=== PATIENT | male | born 1970 | race Caucasian/White ===

== ENCOUNTER → 2018-09-27 | Outpatient (CLI) | payer BC ==
[~2018-09-27] MED LIST: BARIUM SUSPENSION 2.1% (REDI-CAT 2) 450 ML PO ONE; CATHETER FLUSH 10 ML SYR IV PRN; HOLD METFORMIN - RECEIVED CONTRAST 20 ML VIAL IV SCH; IOHEXOL 350 MG/ML 150 ML (OMNIPAQUE 350) VIAL IV ONE; NS 100 ML (IVPB) BAG IV ONE
[2018-09-27 10:11] LABS: BASOPHILS % (AUTO) 0 % (0-10); EOSINOPHILS # (AUTO) 0.4 10^3/uL (0.0-0.3); EOSINOPHILS % (AUTO) 2 % (0-10); HEMATOCRIT 38 % (40-54); HEMOGLOBIN 12.7 G/DL (13.3-17.7); LYMPHOCYTES # (AUTO) 1.9 X 10^3 (1.0-4.0); LYMPHOCYTES % (AUTO) 31 % (12-44); MEAN CORPUSCULAR HEMOGLOBIN 31 PG (25-34); MEAN CORPUSCULAR HGB CONC 34 G/DL (32-36); MEAN CORPUSCULAR VOLUME 91 FL (80-99); MEAN PLATELET VOLUME 8.8 FL (7.4-10.4); MONOCYTES # (AUTO) 0.4 X 10^3 (0.0-1.0); MONOCYTES % (AUTO) 6 % (0-12); NEUTROPHILS # (AUTO) 3.6 X 10^3 (1.8-7.8); NEUTROPHILS % (AUTO) 60 % (42-75); PLATELET COUNT 131 10^3/uL (130-400); RED CELL DISTRIBUTION WIDTH 13.3 % (10.0-14.5)
[2018-09-27 10:40] LABS: SODIUM 144 MMOL/L (135-145)
[2018-09-27 10:41] LABS: ALANINE AMINOTRANSFERASE 34 U/L (0-55); ALBUMIN 4.1 GM/DL (3.2-4.5); ALKALINE PHOSPHATASE 90 U/L (40-136); BILIRUBIN,TOTAL 0.5 MG/DL (0.1-1.0); BUN/CREATININE RATIO 15; CALCIUM 8.6 MG/DL (8.5-10.1); CARBON DIOXIDE 23 MMOL/L (21-32); CHLORIDE 108 MMOL/L (98-107); GFR ESTIMATED > 60; GLUCOSE 108 MG/DL (70-105); TOTAL PROTEIN 6.5 GM/DL (6.4-8.2)
--- NOTE | 2018-09-27 13:45 | Diagnostic Imaging Report ---
INDICATION: Leukemia. COMPARISON: No prior examinations are available for comparison. TECHNIQUE: Multiple contiguous axial images were obtained through the neck, chest, abdomen, and pelvis after the uneventful bolus administration of intravenous contrast. Sagittal and coronal reformations were then performed. FINDINGS: The visualized intracranial structures are unremarkable. The frontal, ethmoid, and sphenoid sinuses are clear. There is moderate mucosal thickening in the right maxillary sinus. The left maxillary sinus is clear. The mastoid air cells are clear. The nasopharyngeal, oropharyngeal, and hypopharyngeal tissues are symmetrical and without mass effect. The parotid, submandibular, and thyroid glands are normal in appearance. The lung apices are clear. The major vascular structures of the neck enhance in a normal fashion. There is no pathologically enlarged adenopathy or mass in the neck. The globes and intraorbital structures are unremarkable. There are minimal degenerative changes in the cervical spine. There are no discrete pulmonary nodules, masses, or infiltrates. There is no pleural or pericardial fluid. There is no pneumothorax. The heart size is normal. The thoracic aorta is normal in caliber. There is no pathologically enlarged adenopathy in the chest. There is no pneumothorax. There are mild degenerative changes in the thoracic spine. The liver is normal in size and without focal lesions. The gallbladder is unremarkable. There is no biliary ductal dilatation. Spleen is normal. The pancreas and adrenal glands are unremarkable. There are small bilateral renal cysts. The kidneys are otherwise unremarkable. The aorta is nonaneurysmal. Bowel gas pattern is nonspecific. There is no pathologically enlarged adenopathy in the central mesentery or retroperitoneum. No free air. There is no ascites. There are no focal inflammatory changes. The appendix is normal. Bladder is normal. There is no pelvic mass, adenopathy, or free fluid. There are mild degenerative changes in the spine. IMPRESSION: 1. Mild mucosal thickening in the right maxillary sinus. 2. Degenerative changes in the spine. 3. Bilateral renal cysts. 4. No other acute abnormality in the neck, chest, abdomen, or pelvis. Dictated by: Dictated on workstation # [id number]
== END ==
LOC: RAD FS 09:48
PROVIDERS: ATTEND Internal Medicine Hematology & Oncology
DX: C91.11 Chronic lymphocytic leukemia of B-cell type in remission (principal); J34.89 Other specified disorders of nose and nasal sinuses; N28.1 Cyst of kidney, acquired; M47.812 Spondylosis without myelopathy or radiculopathy, cervical region; M47.814 Spondylosis without myelopathy or radiculopathy, thoracic region
CPT/HCPCS: 36415; 70491; 71260; 74176; 80053; 82232; 82784; 83615; 85025

== ENCOUNTER → 2019-10-04 | Outpatient (CLI) | payer BC ==
[~2019-10-04] MED LIST changes: -BARIUM SUSPENSION 2.1% (REDI-CAT 2) 450 ML PO ONE; +BARIUM SUSPENSION 2.1% (VANILLA SILQ) 450 ML PO ONE; +HYDR-3820 PO; +IOHEXOL 350 MG/ML 100 ML (OMNIPAQUE 350) VIAL IV ONE; -IOHEXOL 350 MG/ML 150 ML (OMNIPAQUE 350) VIAL IV ONE; +ONDA4TAB11 PO; +TMSL.4C PO
[2019-10-04 09:25] LABS: HEMATOCRIT 35 % (40-54); HEMOGLOBIN 11.7 G/DL (13.3-17.7); MEAN CORPUSCULAR HEMOGLOBIN 31 PG (25-34); MEAN CORPUSCULAR HGB CONC 34 G/DL (32-36); MEAN CORPUSCULAR VOLUME 92 FL (80-99); RED CELL DISTRIBUTION WIDTH 14.3 % (10.0-14.5); WHITE BLOOD COUNT 13.9 10^3/uL (4.3-11.0)
[2019-10-04 09:26] LABS: BASOPHILS % (AUTO) 0 % (0-10); EOSINOPHILS % (AUTO) 1 % (0-10); MONOCYTES % (AUTO) 12 % (0-12); NEUTROPHILS % (AUTO) 24 % (42-75); PLATELET COUNT 70 10^3/uL (130-400)
[2019-10-04 09:28] LABS: BASOPHILS # (AUTO) 0.1 10^3/uL (0.0-0.1); EOSINOPHILS # (AUTO) 0.1 10^3/uL (0.0-0.3); LYMPHOCYTES # (AUTO) 8.5 X 10^3 (1.0-4.0); LYMPHOCYTES % (AUTO) 64 % (12-44); MONOCYTES # (AUTO) 1.7 X 10^3 (0.0-1.0); NEUTROPHILS # (AUTO) 3.4 X 10^3 (1.8-7.8)
[2019-10-04 09:55] LABS: BILIRUBIN,TOTAL 0.6 MG/DL (0.1-1.0); CALCIUM 9.4 MG/DL (8.5-10.1); CREATININE SERUM 1.38 MG/DL (0.60-1.30); TOTAL PROTEIN 6.7 GM/DL (6.4-8.2)
[2019-10-04 09:56] LABS: ALBUMIN 4.5 GM/DL (3.2-4.5)
--- NOTE | 2019-10-04 12:59 | Diagnostic Imaging Report ---
EXAMINATION: CT Neck, Chest, Abdomen and Pelvis with intravenous contrast. TECHNIQUE: Multiple contiguous axial images were obtained through the neck, chest, abdomen and pelvis after the uneventful administration of intravenous contrast. All CT scans use one or more of the following dose optimizing techniques: automated exposure control, MA and/or KvP adjustment based on a patient size and exam type, or iterative reconstruction. HISTORY: History of CLL. 1 year follow-up. COMPARISON: 09/27/2018. FINDINGS: Neck CT: Interval enlargement of innumerable cervical lymph nodes is seen. A marker lymph node in the right level 2 station measures 2.6 x 2.0 cm, previously measuring 1.1 x 0.5 cm. A marker lymph node in the left level 2 station measures 2.7 x 1.7 cm, previously measuring 1.2 x 0.9 cm. Enlarged lymphadenopathy extends into the base of the neck. The parotid, submandibular, and thyroid glands demonstrate no acute abnormalities. The nasopharynx, oropharynx, hypopharynx, and larynx demonstrate no acute abnormalities. The aerodigestive tract is patent. The paranasal sinuses and mastoid air cells are well pneumatized. The globes and orbits demonstrate no acute abnormalities. The intracranial contents are unremarkable. Chest CT: There has been interval development of pathologically enlarged lymphadenopathy in the bilateral axillary regions and mediastinum. A marker lymph node in the left axilla measures 2.2 x 2.6 cm. A marker lymph node in the right axilla measures 3.3 x 2.1 cm. A mediastinal lymph node posterior and left to the esophagus measures 2.7 x 1.6 cm. Interval increase in size in a nodule in the right middle lobe measuring 0.9 cm, previously measuring 0.5 cm. A new nodule seen in the right upper lobe measuring 0.9 cm. No focal consolidations. Subsegmental atelectasis is seen in the lingula. Calcified granuloma is noted in the right lung base. No central endobronchial obstructing lesions. The heart size is normal. No pericardial effusions. A right port is visualized. No acute osseous abnormalities are seen in the thoracic spine. Abdomen and Pelvis CT: Pathologically enlarged mediastinal and retroperitoneal lymphadenopathy is seen. There is also lymphadenopathy along the bilateral iliac chains and within the bilateral inguinal regions. There has been development of hepatosplenomegaly. The spleen measures 16.7 cm craniocaudal, previously measuring 12.1 cm. No focal hepatic or splenic lesions are seen. The portal vein is patent. The gallbladder is unremarkable. Pancreas is normal. Spleen is normal. Adrenal glands are normal. A nonobstructing calculus is seen in the right kidney measuring 0.5 cm. No obstructing calculi or hydronephrosis. Simple cortical cysts are seen bilaterally which do not require additional follow-up. No solid suspicious renal masses are seen. The urinary bladder is nondistended. There are no dilated loops of large or small bowel. No obstruction or inflammation. No free fluid or air. Aorta is normal in caliber without aneurysm. There are no suspicious osseus lesions. IMPRESSION: 1. Interval development of pathologically enlarged lymphadenopathy in the neck, chest, abdomen and pelvis. These findings are concerning for disease progression since the last exam. 2. Development of hepatosplenomegaly. No focal hepatic or splenic lesions are seen. These findings likely relate to the patient's history of CLL. 3. Interval increase in size in a nodule in the right middle lobe measuring 0.9 cm with development of a new nodule in the right upper lobe measuring 0.9 cm. Recommend attention on follow-up. Dictated by: Dictated on workstation # [id number]
== END ==
LOC: LAB FS 08:41
PROVIDERS: ATTEND Internal Medicine Hematology & Oncology
DX: C91.11 Chronic lymphocytic leukemia of B-cell type in remission (principal); R91.1 Solitary pulmonary nodule
CPT/HCPCS: 36415; 70491; 71260; 74176; 80053; 82728; 83540; 83615; 85025

== ENCOUNTER 2019-10-05 22:43 | Emergency (ER) | payer BC ==
[~2019-10-05] VITALS: Ht 180.3 cm; Wt 121.0 kg
[2019-10-05] MEDS ORDERED: PROCHLORPERAZINE 10 MG/2ML INJ (COMPAZINE) IV ONE (23:00)
[2019-10-05] MEDS ORDERED: NS IV 1000 ML 1,000 ML IV SCH (23:00)
[2019-10-05] MEDS ORDERED: KETOROLAC 30 MG/ML VIAL IVP ONE (23:00)
[2019-10-05] MEDS ORDERED: fentaNYL INJECTION 100 MCG/2 ML AMP IVP ONE (23:00)
--- OUTSIDE RECORDS SUMMARY | 2019-10-05 23:26 | XMS REPORT | Continuity of Care Document ---
Demographics x Preferred Language Unknown Marital Status Unknown Jainism Affiliation Unknown Race Unknown Ethnic Group Unknown Author Organization Unknown Address Unknown Phone Unavailable Allergies Active Description Code Type Severity Reaction Onset Reported/Identified Relationship to Patient Clinical Status Yes No Allergy Information Available [id number] Drug Allergy Unknown N/A 019 Yes oxycodone [id number] Drug Allergy Unknown N/A 10/04/2019 Medications There is no data. 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 09/28/2018 RADHA VALIENTE NORBERTO V Ot M47.81 4 SPONDYLOSIS W/O MYELOPATHY OR RADICULOPA 09/28/2018 RADHA VALIENTE, NORBERTO V Ot N28.1 CYST OF KIDNEY, ACQUIRED 10/18/2018 RADHA VALIENTE NORBERTO V Ot C91.11 CHRONIC LYMPHOCYTIC LEUKEMIA OF B-CELL T 10/18/2018 RADHA VALIENTE NORBERTO V Ot J34.89 OTHER SPECIFIED DISORDERS OF NOSE AND NA 10/18/2018 RADHA VALIENTE NORBERTO V Ot 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 Results Test Result Range Complete blood count (CBC) with automate d white blood cell (WBC) differential - 09/27/18 10:04 Blood leukocytes automated count (number/volume) 6.0 10*3/uL 4.3-11.0 Blood erythrocytes automated count (number/volume) 4.15 10*6/uL 4.35-5.85 Venous blood hemoglobin measurement (mass/volume) 12.7 g/dL 13.3-17.7 Blood hematocrit (volume fraction) 38 % 40-54 Automated erythrocyte mean corpuscular volume 91 [ foz_us] 80-99 Automated erythrocyte mean corpuscular h emoglobin (mass per erythrocyte) 31 pg 25-34 Automated erythrocyte mean corpuscular h emoglobin concentration measurement (mass/volume) 34 g/dL 32-36 Automated erythrocyte distribution width ratio 13. 3 % 10.0- 14.5 Automated blood platelet count (count/volume) 131 10*3/uL 130-400 Automated blood platelet mean volume measurement 8.8 [foz_us] 7.4-10.4 Automated blood neutrophils/100 leukocytes 60 % 42-75 Automated blood lymphocytes/100 leukocytes 31 % 12-44 Blood monocytes/100 leukocytes 6 % 0-12 Automated blood eosinophils/100 leukocytes 2 % 0-10 Automated blood basophils/100 leukocytes 0 % 0-10 Blood neutrophils automated count (number/volume) 3.6 10*3 1.8-7.8 Blood lymphocytes automated count (number/volume) 1.9 10*3 1.0-4.0 Blood monocytes automated count (number/volume) 0. 4 10*3 0.0-1.0 Automated eosinophil count 0.4 10*3/uL 0 .0-0.3 Automated blood basophil count (count/volume) 0.0 10*3/uL 0.0-0.1 Comprehensive metabolic panel - 09/27/18 10:04 Serum or plasma sodium measurement (moles/volume) 144 mmol/L 135-145 Serum or plasma potassium measurement (moles/volume) 4.0 mmol/L 3.6-5.0 Serum or plasma chloride measurement (moles/volume) 108 mmol/L 98-107 Carbon dioxide 23 mmol/L 21-32 Serum or plasma anion gap determination (moles/volume) 13 mmol/L 5-14 Serum or plasma urea nitrogen measurement (mass/volume ) 16 mg/dL 7-18 Serum or plasma creatinine measurement (mass/volume) 1.10 mg/dL 0.60-1.30 Serum or plasma urea nitrogen/creatinine mass ratio 15 NRG Serum or plasma creatinine measurement w ith calculation of estimated glomerular filtration rate > NRG Serum or plasma glucose measurement (mass/volume) 108 mg/dL 70-105 Serum or plasma calcium measurement (mass/volume) 8.6 mg/dL 8.5-10.1 Serum or plasma total bilirubin measurement (mass/volu me) 0.5 mg/dL 0.1-1.0 Serum or plasma alkaline phosphatase giuseppe surement (enzymatic activity/volume) 90 U/L 40-136 Serum or plasma aspartate aminotransfera se measurement (enzymatic activity/volume) 24 U/L 5-34 Serum or plasma alanine aminotransferase measurement (enzymatic activity/volume) 34 U/L 0-55 Serum or plasma protein measurement (mass/volume) 6.5 g/dL 6.4-8.2 Serum or plasma albumin measurement (mass/volume) 4.1 g/dL 3.2-4.5 CALCIUM CORRECTED 8.5 mg/dL 8.5-10.1 Serum ragweed IgE antibody assay - 09/27 10:04 Serum ragweed IgE antibody assay 252 U/L 125-220 Serum plmk-9-ytrbkmvchvnpt measurement ( mass/volume) - 09/27/18 10:04 Irvg-1-Gsaadyvgkjvli [Mass/volume] in Serum or Plasma 2.45 % 0.00-1.85 Serum or plasma IgG measurement (mass/vo lume) - 09/27/18 10:04 [id number] 564 % [id number] T4 FREE - 10/18/18 08:07 T4, FREE 1.2 ng/dL 0.8-1.8 TSH - 10/18/18 08:07 TSH 0.34 mIU/L 0.40-4.50 T3 FREE - 10/18/18 08:07 T3, FREE 3.4 pg/mL 2.3-4.2 Complete blood count (CBC) with automate d white blood cell (WBC) differential - 10/04/19 09:04 Blood leukocytes automated count (number/volume) 13.9 10*3/uL 4.3-11.0 Blood erythrocytes automated count (number/volume) 3.81 10*6/uL 4.35-5.85 Venous blood hemoglobin measurement (mass/volume) 11.7 g/dL 13.3-17.7 Blood hematocrit (volume fraction) 35 % 40-54 Automated erythrocyte mean corpuscular volume 92 [ foz_us] 80-99 Automated erythrocyte mean corpuscular h emoglobin (mass per erythrocyte) 31 pg 25-34 Automated erythrocyte mean corpuscular h emoglobin concentration measurement (mass/volume) 34 g/dL 32-36 Automated erythrocyte distribution width ratio 14. 3 % 10.0- 14.5 Automated blood platelet count (count/volume) 70 1 0*3/uL 130-400 Automated blood platelet mean volume measurement 9.0 [foz_us] 7.4-10.4 Automated blood neutrophils/100 leukocytes 24 % 42-75 Automated blood lymphocytes/100 leukocytes 64 % 12-44 Blood monocytes/100 leukocytes 12 % 0-12 Automated blood eosinophils/100 leukocytes 1 % 0-10 Automated blood basophils/100 leukocytes 0 % 0-10 Blood neutrophils automated count (number/volume) 3.4 10*3 1.8-7.8 Blood lymphocytes automated count (number/volume) 8.5 10*3 1.0-4.0 Blood monocytes automated count (number/volume) 1. 7 10*3 0.0-1.0 Automated eosinophil count 0.1 10*3/uL 0 .0-0.3 Automated blood basophil count (count/volume) 0.1 10*3/uL 0.0-0.1 Comprehensive metabolic panel - 10/04/19 09:04 Serum or plasma sodium measurement (moles/volume) 145 mmol/L 135-145 Serum or plasma potassium measurement (moles/volume) 4.0 mmol/L 3.6-5.0 Serum or plasma chloride measurement (moles/volume) 110 mmol/L 98-107 Carbon dioxide 23 mmol/L 21-32 Serum or plasma anion gap determination (moles/volume) 12 mmol/L 5-14 Serum or plasma urea nitrogen measurement (mass/volume ) 18 mg/dL 7-18 Serum or plasma creatinine measurement (mass/volume) 1.38 mg/dL 0.60-1.30 Serum or plasma urea nitrogen/creatinine mass ratio 13 NRG Serum or plasma creatinine measurement w ith calculation of estimated glomerular filtration rate 55 NRG Serum or plasma glucose measurement (mass/volume) 111 mg/dL 70-105 Serum or plasma calcium measurement (mass/volume) 9.4 mg/dL 8.5-10.1 Serum or plasma total bilirubin measurement (mass/volu me) 0.6 mg/dL 0.1-1.0 Serum or plasma alkaline phosphatase giuseppe surement (enzymatic activity/volume) 108 U/L 40-136 Serum or plasma aspartate aminotransfera se measurement (enzymatic activity/volume) 19 U/L 5-34 Serum or plasma alanine aminotransferase measurement (enzymatic activity/volume) 23 U/L 0-55 Serum or plasma protein measurement (mass/volume) 6.7 g/dL 6.4-8.2 Serum or plasma albumin measurement (mass/volume) 4.5 g/dL 3.2-4.5 CALCIUM CORRECTED 9.0 mg/dL 8.5-10.1 Serum ragweed IgE antibody assay - 10/03 09:04 Serum ragweed IgE antibody assay 272 U/L 125-220 Serum iron and total iron binding capaci ty panel - 10/04/19 09:04 TIBC 326 % 280-380 UIBC 205 % 55-450 Serum or plasma iron measurement (mass/volume) 121 % 40-180 Total iron binding capacity and transferrin saturation measurement 37 % 15-50 Serum or plasma ferritin measurement (mass/volume) 203.8 % 32.0-356.0 Encounters ACCT No. Visit Date/Time Discharge Status Pt. Type Provider Facility Loc./Unit Complaint [id number] 01/05/2019 16:00:00 01/05/2019 23:59: 59 CLS Outpatient ERMELINDA PRINCE [facility] [id number] 10/18/2018 08:00:00 Document Registration [id number] 02/04/2019 08:45:00 23:59:59 CLS Preadmit ERMELINDA PRINCE [employer] [facility] RAD FS LOW TSH LEVEL [id number] 09/27/2018 09:48:00 23:59:59 CLS Outpatient RADHA VALIENTE, NORBERTO V [facility] RAD FS CHRONIC LYMPHOCYTIC ADEEL KEMIA C91.11 [id number] 10/05/2019 22:44:[address] Emergency JAE BARAHONA DO [facility] ER FS VOMITING,RIGHT SIDE ABD PAIN [id number] 10/04/2019 08:41:[address] Outpatient RADHA VALIENTE, NORBERTO V [facility] LAB FS CHRONIC LYMPHOCYTIC LEUKEMIA OF B-CELL [id number] 10/22/2018 20:09:36 ACT Unknown [id number] 10/23/2018 00:46:54 ACT Document Registration
[2019-10-06 00:05] LABS: BILIRUBIN,URINE 1+ (NEGATIVE); CLARITY,URINE CLOUDY; COLOR,URINE DARK BROWN; GLUCOSE, URINE (UA) NEGATIVE (NEGATIVE); KETONES,URINE TRACE (NEGATIVE); LEUKOCYTE ESTERASE ,URINE NEGATIVE (NEGATIVE); NITRITE,URINE NEGATIVE (NEGATIVE); PH,URINE 6.5 (5-9); PROTEIN,URINE 2+ (NEGATIVE); RBC,URINE >100 /HPF
[2019-10-06 00:06] LABS: BACTERIA,URINE FEW /HPF; GRANULAR CASTS,URINE 0-2 /LPF
[2019-10-06] MEDS ORDERED: HYDR-3820 PO (00:58)
[2019-10-06] MEDS ORDERED: ONDA4TAB11 PO (00:58)
[2019-10-06] MEDS ORDERED: TMSL.4C PO (00:58)
[2019-10-06] MEDS ORDERED: ONDANSETRON 4 MG (ZOFRAN) ORAL DISSOLVE TAB PO STA (00:59)
[2019-10-06] MEDS ORDERED: morphine INJ 10 MG/ML 1ML (SYR OR VIAL) IVP STA (00:59)
[2019-10-06] MEDS ORDERED: HYDROcodone/APAP 5 MG/325 MG (LORTAB) TAB PO ONE (01:00)
[2019-10-06] MEDS ORDERED: ONDANSETRON 4 MG/2 ML (SDV) Z0FRAN IVP ONE (01:00)
[2019-10-06] MEDS ORDERED: RX-ONDANSETRON 4 MG ODT (ZOFRAN) PPK #4 PO STA (01:05)
[2019-10-06] MEDS ORDERED: RX-HYDROCODONE/APAP 5/325 MG #4 TAB PK PO PRN (01:15)
[2019-10-06 01:17] VITALS: BP 122/72
--- NOTE | 2019-10-06 04:18 | ED General ---
General Chief Complaint: Abdominal/GI Problems Stated Complaint: VOMITING,RIGHT SIDE ABD PAIN Nursing Triage Note: PT AMBULATE TO ROOM FS01 WITH C/O ABD PAIN/N/V. PT REPORTS HAVING SCANS DONE YESTERDAY AND HAS KIDNEY STONES. Nursing Sepsis Screen: No Definite Risk Exam Limitations: No Limitations History of Present Illness Date Seen by Provider: Oct 05, 2019 Time Seen by Provider: 23:00 Initial Comments Patient is a 49-year-old male with history of chronic lymphocytic leukemia and known kidney stones presents with acute onset right flank pain starting 6 hours prior to ED arrival. Pain is described as dull, nonradiating and rated moderate to severe. Pain waxes and wanes it is associated with nausea and vomiting. His similar in location and pattern as prior kidney stones. No fever chills or sweats. No change in urinary pattern but does report blood-tinged urine. Patient states he passed multiple kidney stones in the past and has not required surgical intervention. Patient coincidentally had outpatient CTs chest abdomen pelvis for surveillance of chronic leukemia. Timing/Duration: 4-6 Hours Severity: Severe Modifying Factors: improves with Other Allergies and Home Medications Allergies Coded Allergies: oxycodone (Unverified Allergy, Unknown, 10/04/19) Home Medications Hydrocodone/Acetaminophen 1 Each Tablet, 1 EACH PO Q4H Prescribed by: JAE BARAHONA on 10/06/1958 Ondansetron 4 Mg Tab.rapdis, 4 MG PO Q6H Prescribed by: JAE BARAHONA on 10/06/1957 Tamsulosin HCl 0.4 Mg Cap, 0.4 MG PO DAILY Prescribed by: JAE BARAHONA on 10/06/1958 Patient Home Medication List Home Medication List Reviewed: Yes Review of Systems Review of Systems Constitutional: see HPI EENTM: see HPI Respiratory: see HPI Cardiovascular: see HPI Gastrointestinal: see HPI Genitourinary: see HPI Musculoskeletal: see HPI Skin: see HPI Psychiatric/Neurological: See HPI Hematologic/Lymphatic: See HPI Immunological/Allergic: see HPI Past Ghifuvt-Fzjbkt-Kzlsmd Hx Past Med/Social Hx: Reviewed Nursing Past Med/Soc Hx Patient Social History Alcohol Use: Denies Use Recreational Drug Use: No Smoking Status: Never a Smoker 2nd Hand Smoke Exposure: No Recent Foreign Travel: No Contact w/Someone Who Travel: No Recent Infectious Disease Expo: No Recent Hopitalizations: No Physical Abuse: No Sexual Abuse: No Mistreated: No Fear: No Seasonal Allergies Seasonal Allergies: No Past Medical History Surgeries: Yes (PORT IN RIGHT CHEST) Respiratory: No Cardiac: No Neurological: No Genitourinary: Yes Kidney Stones Gastrointestinal: No Musculoskeletal: No Endocrine: No HEENT: No Cancer: Yes (CLL) Did You Recieve Any Treatments: Yes What Type of Treatment Did You: Chemotherapy Psychosocial: No Integumentary: No Blood Disorders: Yes (ANEMIA) Physical Exam Vital Signs Vital Signs - First Documented 10/05/19 10/06/19 22:52 01:17 Temp 36.3 Pulse 65 Resp 16 B/P (MAP) 123/72 (89) Pulse Ox 98 O2 Delivery Room Air Capillary Refill : Less Than 3 Seconds Height, Weight, BMI Height: '" Weight: lbs. oz. kg; 37.00 BMI Method: General Appearance: Moderate Distress Eyes: Bilateral Eye Normal Inspection, Bilateral Eye PERRL, Bilateral Eye EOMI HEENT: PERRL/EOMI, Pharynx Normal, Moist Mucous Membranes Neck: Non Tender Respiratory: Lungs Clear Cardiovascular: Regular Rate, Rhythm Gastrointestinal: Non Tender, Soft Back: Normal Inspection, No CVA Tenderness Neurologic/Psychiatric: Alert, Oriented x3 Skin: Normal Color Focused Exam Sepsis Stage: Ruled Out Progress/Results/Core Measures Suspected Sepsis Recent Fever Within 48 Hours: No Infection Criteria Present: None New/Unexplained Altered Menta: No Sepsis Screen: No Definite Risk SIRS Temperature: Pulse: 72 Respiratory Rate: 17 Blood Pressure 122 /72 Mean: 89 Results/Orders Lab Results Laboratory Tests Test 10/05/19 23:41 Range/Units Urine Color DARK BROWN Urine Clarity CLOUDY Urine pH 6.5 5-9 Urine Specific [place] >=1.030 1.016-1.022 Urine Protein 2+ H NEGATIVE Urine Glucose (UA) NEGATIVE NEGATIVE Urine Ketones TRACE H NEGATIVE Urine Nitrite NEGATIVE NEGATIVE Urine Bilirubin 1+ H NEGATIVE Urine Urobilinogen 0.2 < = 1.0 MG/DL Urine Leukocyte Esterase NEGATIVE NEGATIVE Urine RBC (Auto) 3+ H NEGATIVE Urine RBC >100 H /HPF Urine WBC NONE /HPF Urine Squamous Epithelial Cells 5-10 /HPF Urine Renal Epithelial Cells 2-5 /HPF Urine Crystals NONE /LPF Urine Bacteria FEW H /HPF Urine Casts PRESENT /LPF Urine Hyaline Casts 2-5 H /LPF Urine Granular Casts 0-2 H /LPF Urine Mucus LARGE H /LPF Urine Culture Indicated NO My Orders Orders - JAE BARAHONA DO Fentanyl Injection (Sublimaze Injection (10/05/19 23:00) Prochlorperazine Injection (Compazine In (10/05/19 23:00) Ketorolac Injection (Toradol Injection) (10/05/19 23:00) Ns Iv 1000 Ml (Sodium Chloride 0.9%) (10/05/19 23:00) Ua Culture If Indicated (10/05/19 23:01) Ed Iv/Invasive Line Start (10/05/19 23:46) Morphine Injection (Morphine Injection (10/06/19 00:59) Ondansetron Injection (Zofran Injectio (10/06/19 01:00) Rx-Hydrocodone/Apap 5-325 Mg (Rx-Vicodin (10/06/19 01:15) Rx-Ondansetron Po (Rx-Zofran Po) (10/06/19 01:05) Medications Given in ED Current Medications Medications Dose Ordered Sig/Derick Route Start Time Stop Time Status Last Admin Dose Admin Acetaminophen/ Hydrocodone Bitart 1 ea Q4H PRN PO 10/06/19 01:15 10/06/19 01:17 DC 10/06/19 01:13 1 EA Fentanyl Citrate 100 mcg ONCE ONCE IVP 10/05/19 23:00 10/05/19 23:01 DC 10/05/19 23:08 100 MCG Ketorolac Tromethamine 30 mg ONCE ONCE IVP 10/05/19 23:00 10/05/19 23:01 DC 10/05/19 23:08 30 MG Ondansetron HCl 4 mg ONCE ONCE IVP 10/06/19 01:00 10/06/19 01:02 DC 10/06/19 01:13 4 MG Prochlorperazine Edisylate 10 mg ONCE ONCE IV 10/05/19 23:00 10/05/19 23:01 DC 10/05/19 23:08 10 MG Vital Signs/I&O 10/05/19 10/06/19 22:52 01:17 Temp 36.3 Pulse 65 72 Resp 16 17 B/P (MAP) 123/72 (89) 122/72 Pulse Ox 98 O2 Delivery Room Air Room Air Capillary Refill : Less Than 3 Seconds Blood Pressure Mean: 89 Departure Communication (Admissions) Patient had outpatient lab and CT abdomen and pelvis performed yesterday. 0.5 cm stone in the right kidney is noted which is on the same side as the patient's current pain. Positive hematuria. Pain significantly improved with treatment. Recommend follow-up with local urologist and oncologist for review of abnormal CT results and managemetn of CLL. Impression Primary Impression: Ureteral stone Additional Impression: Acute right flank pain Disposition: HOME, SELF-CARE Condition: Stable/Unchanged Departure-Patient Inst. Decision time for Depature: 01:00 Referrals: LILLIAN HERRERA MD Patient Instructions: Kidney Stone Diet Add. Discharge Instructions: Please increase fluids and strain urine for stone. Take newly prescribed medications as directed and follow up with Dr. Herrera, urology. Return to the ED if new or worsening symptoms. All discharge instructions reviewed with patient and/or family. Voiced understanding. Scripts Tamsulosin HCl (Flomax) 0.4 Mg Cap 0.4 MG PO DAILY, #10 CAP Prov: JAE BARAHONA DO 10/06/19 Ondansetron (Ondansetron Odt) 4 Mg Tab.rapdis 4 MG PO Q6H, #10 TAB Prov: JAE BARAHONA DO 10/06/19 Hydrocodone/Acetaminophen (Hydrocodone-Acetamin 10-325 mg) 1 Each Tablet 1 EACH PO Q4H, #20 TAB Prov: JAE BARAHONA DO 10/06/19 JAE BARAHONA DO Oct 06, 2019 04:18
== END 2019-10-06 01:17 | disposition home or self-care (01) ==
LOC: EDUNIT# 22:43 → ER FS 22:44
DX: N20.1 Calculus of ureter (principal); Z85.6 Personal history of leukemia; Z88.5 Allergy status to narcotic agent
CPT/HCPCS: 81000

== ENCOUNTER → 2019-10-11 | Outpatient (CLI) | payer BC ==
[~2019-10-11] MED LIST changes: -BARIUM SUSPENSION 2.1% (VANILLA SILQ) 450 ML PO ONE; -CATHETER FLUSH 10 ML SYR IV PRN; -HOLD METFORMIN - RECEIVED CONTRAST 20 ML VIAL IV SCH; -IOHEXOL 350 MG/ML 100 ML (OMNIPAQUE 350) VIAL IV ONE; -NS 100 ML (IVPB) BAG IV ONE
--- NOTE | 2019-10-11 14:42 | Diagnostic Imaging Report ---
INDICATION: Right-sided abdominal pain COMPARISON: CT dated 10/04/2019 FINDINGS: 2 supine radiographic views of the abdomen were obtained. Note is made of nonobstructive calculus within the inferior pole of the right kidney on recent CT dated 10/04/2019. No unexpected calcification is seen projecting over the inferior pole of the right renal shadow on today's study. There is however a 6 to 7 mm calculus projecting over the right sacrum which could conceivably represent interval migration of the calculus into the distal right ureter. Small bowel loops are nondistended. Moderate air and stool is noted within the ascending and transverse colon. There is no large collection of free intraperitoneal air. No unexpected radio opaque foreign bodies are seen. IMPRESSION: 1. Possible interval migration of calculus into the distal right ureter as described above. 2. Nonobstructive small bowel gas pattern. Dictated by: Dictated on workstation # [id number]
== END ==
LOC: RAD 13:27
PROVIDERS: ATTEND Urology
DX: N20.1 Calculus of ureter (principal)
CPT/HCPCS: 74018

== ENCOUNTER → 2019-10-20 | Outpatient (CLI) | payer BC ==
[~2019-10-20] MED LIST changes: +CYAN100088 PO; +FERR-84 PO; +PHEN-640 PO; +SULF1TAB35 PO; +TRM50T PO
--- NOTE | 2019-10-20 13:17 | Diagnostic Imaging Report ---
EXAMINATION: CT Abdomen Pelvis without contrast. TECHNIQUE: Multiple contiguous axial images were obtained through the abdomen and pelvis without the use of intravenous contrast. All CT scans use one or more of the following dose optimizing techniques: automated exposure control, MA and/or KvP adjustment based on a patient size and exam type, or iterative reconstruction. HISTORY: Right ureteral stent COMPARISON: 10/04/2019 FINDINGS: Limited views of the lower thorax show right middle lobe nodule and mediastinal lymphadenopathy. The liver is normal without focal lesion. There is no biliary ductal dilation. Gallbladder is normal. Pancreas is normal. Spleen is enlarged. Adrenal glands are normal. There is a 7 mm stone in the right ureter, 3 cm above the ureteral orifice. There is moderate right-sided hydroureteronephrosis. Left kidney is normal without stones. Left ureter is normal. No suspicious renal lesions are seen. Urinary bladder is normal. Visualized bowel is normal in caliber without obstruction or inflammation. No free fluid or air. Again seen is fairly extensive inguinal, mesenteric and retroperitoneal lymphadenopathy with splenomegaly which appears similar to prior study. Aorta is normal in caliber without aneurysm. There are no suspicious osseus lesions. IMPRESSION: 1. Right distal ureteral stone measuring 7 mm with moderate right-sided hydroureteronephrosis. 2. Unchanged extensive inguinal, mesenteric and retroperitoneal lymphadenopathy with splenomegaly and mediastinal lymphadenopathy. Dictated by: Dictated on workstation # [id number]
== END ==
LOC: RAD FS 12:24
PROVIDERS: ATTEND Urology
DX: N20.1 Calculus of ureter (principal); N13.30 Unspecified hydronephrosis; R59.0 Localized enlarged lymph nodes; R16.1 Splenomegaly, not elsewhere classified
CPT/HCPCS: 74176

== ENCOUNTER 2019-10-24 05:45 | Outpatient (RCR) | payer BC ==
[~2019-10-24] VITALS: Ht 180.3 cm; Wt 126.4 kg
[~2019-10-24 05:45] MED LIST changes: -CYAN100088 PO; -FERR-84 PO; -PHEN-640 PO; -SULF1TAB35 PO; -TRM50T PO
[2019-10-24] MEDS ORDERED: CYAN100088 PO ×2 (12:27)
[2019-10-24] MEDS ORDERED: FERR-84 PO ×2 (12:27)
[2019-10-25] MEDS ORDERED: TRM50T PO ×2 (10:36)
[2019-10-25] MEDS ORDERED: SULF1TAB35 PO ×2 (10:36)
[2019-10-25] MEDS ORDERED: PHEN-640 PO ×2 (10:36)
== END 2019-10-24 12:36 | disposition home or self-care (01) ==
LOC: PREOP 05:45
PROVIDERS: ATTEND Urology
DX: Z01.818 Encounter for other preprocedural examination (principal)

== ENCOUNTER 2019-10-25 06:56 | Day surgery (SDC) | payer BC ==
[2019-10-25] VITALS (9 sets, daily range): BP systolic 121–154; BP diastolic 76–98
[~2019-10-25] VITALS: Ht 180.3 cm; Wt 126.4 kg
[~2019-10-25 06:56] MED LIST changes: +CYAN100088 PO; +FERR-84 PO
--- OUTSIDE RECORDS SUMMARY | 2019-10-25 07:00 | XMS REPORT | Continuity of Care Document ---
Demographics x Preferred Language Unknown Marital Status Unknown Nondenominational Affiliation Unknown Race Unknown Ethnic Group Unknown Author Organization Unknown Address Unknown Phone Unavailable Allergies Active Description Code Type Severity Reaction Onset Reported/Identified Relationship to Patient Clinical Status Yes No Allergy Information Available [id number] Drug Allergy Unknown N/A 019 Yes oxycodone [id number] Drug Allergy Unknown N/A 10/04/2019 Medications There [...] RADICULOPA 09/28/2018 RADHA VALIENTE NORBERTO V Ot N28.1 CYST OF KIDNEY, [...] RADICULOPA 10/18/2018 RADHA VALIENTE NORBERTO V Ot N28.1 CYST OF KIDNEY, ACQUIRED 10/05/2019 RADHA VALIENTE NORBERTO V Ot C91.11 CHRONIC LYMPHOCYTIC LEUKEMIA OF B-CELL T 10/05/2019 RADHA VALIENTE NORBERTO V Ot R91.1 SOLITARY PULMONARY NODULE 10/06/2019 RADHA VALIENTE NORBERTO V Ot C91.11 CHRONIC LYMPHOCYTIC LEUKEMIA OF B-CELL T 10/06/2019 RADHA VALIENTE NORBERTO V Ot J34.89 OTHER SPECIFIED DISORDERS OF NOSE AND NA 10/06/2019 RADHA VALIENTE, NORBERTO V Ot 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 10/06/2019 RADHA VALIENTE, NORBERTO V Ot M47.81 4 SPONDYLOSIS W/O MYELOPATHY OR RADICULOPA 10/06/2019 RADHA VALIENTE, NORBERTO V Ot N28.1 CYST OF KIDNEY, ACQUIRED 10/06/2019 RADHA VALIENTE, NORBERTO V Ot C91.11 CHRONIC LYMPHOCYTIC LEUKEMIA OF B-CELL T 10/06/2019 RADHA VALIENTE, NORBERTO V Ot R91.1 SOLITARY PULMONARY NODULE 10/07/2019 RADHA VALIENTE, NORBERTO V Ot C91.11 CHRONIC LYMPHOCYTIC LEUKEMIA OF B-CELL T 10/07/2019 RADHA VALIENTE, NORBERTO V Ot R91.1 SOLITARY PULMONARY NODULE 10/07/2019 RADHA VALIENTE, NORBERTO V Ot C91.11 CHRONIC LYMPHOCYTIC LEUKEMIA OF B-CELL T 10/07/2019 RADHA VALIENTE, NORBERTO V Ot R91.1 SOLITARY PULMONARY NODULE 10/07/2019 RADHA VALIENTE, NORBERTO V Ot C91.11 CHRONIC LYMPHOCYTIC LEUKEMIA OF B-CELL T 10/07/2019 RADHA VALIENTE, NORBERTO V Ot R91.1 SOLITARY PULMONARY NODULE 10/10/2019 JAE BARAHONA DO Ot N20.1 CALCULUS OF URETER 10/10/2019 JAE BARAHONA DO Ot R10.9 UNSPECIFIED ABDOMINAL PAIN 10/10/2019 JAE BARAHONA DO Ot Z85.6 PERSONAL HISTORY OF LEUKEMIA 10/10/2019 JAE BARAHONA DO Ot Z88.5 ALLERGY STATUS TO NARCOTIC AGENT STATUS 10/13/2019 LILLIAN HERRERA MD Ot N20.1 CALCULUS OF URETER 10/21/2019 RADHA VALIENTE, NORBERTO V Ot C91.11 CHRONIC LYMPHOCYTIC LEUKEMIA OF B-CELL T 10/21/2019 RADHA VALIENTE, NORBERTO V Ot R91.1 SOLITARY PULMONARY NODULE Procedures There is no data. Results Test [...] IgE antibody assay 252 U/L 125-220 Serum vypq-6-wtdnmebkffvgh measurement ( mass/volume) - 09/27/18 10:04 Rnvl-7-Zrfoptgivkiep [Mass/volume] in Serum or Plasma 2.45 % 0.00-1.85 Serum or plasma IgG measurement (mass/vo lume) - 09/27/18 10:04 [id number] 564 % [id number] T4 FREE - 10/18/18 [...] plasma ferritin measurement (mass/volume) 203.8 % 32.0-356.0 Complete urinalysis with reflex to cultu re - 10/05/19 23:41 Urine color determination DARK BROWN NR G Urine clarity determination CLOUDY NR G Urine pH measurement by test strip 6.5 5-9 Specific gravity of urine by test strip >= 1.016-1.022 Urine protein assay by test strip, semi-quantitative 2+ NEGATIVE Urine glucose detection by automated test strip NE GATIVE NEGATIVE Erythrocytes detection in urine sediment by light micr oscopy 3+ NEGATIVE Urine ketones detection by automated test strip TR MEI NEGATIVE Urine nitrite detection by test strip NEGATIVE NEGATIVE Urine total bilirubin detection by test strip 1+ NEGATIVE Urine urobilinogen measurement by automated test strip (mass/volume) 0.2 mg/dL < = 1.0 Urine leukocyte esterase detection by dipstick NEG ATIVE NEGATIVE Automated urine sediment erythrocyte cou nt by microscopy (number/high power field) > [HPF] NRG Automated urine sediment leukocyte count by microscopy (number/high power field) NONE NRG Bacteria detection in urine sediment by light microsco py FEW NRG Squamous epithelial cells detection in u rine sediment by light microscopy 5-10 NRG Crystals detection in urine sediment by light microsco py NONE NRG Casts detection in urine sediment by light microscopy PRESENT NRG Mucus detection in urine sediment by light microscopy LARGE NRG Complete urinalysis with reflex to culture NO NRG Hyaline casts detection in urine sediment by light zuleyka roscopy 2-5 NRG Renal epithelial cells detection in urin e sediment by light microscopy 2-5 NRG Granular casts detection in urine sediment by light mi croscopy 0-2 NRG Encounters ACCT No. Visit Date/Time Discharge Status Pt. Type Provider Facility Loc./Unit Complaint [id number] 10/14/2019 14:00:00 10/14/2019 23:59: 59 CLS Outpatient [facility] [id number] 10/18/2018 08:00:00 Document Registration [id number] 10/24/2019 05:45:00 12:36:00 DIS Outpatient LILLIAN HERRERA MD [facility] PREOP RIGHT URETERAL STONE [id number] 10/20/2019 12:24:00 23:59:59 CLS Outpatient LILLIAN HERRERA MD [facility] RAD FS RIGHT URETERAL STONE [id number] 10/11/2019 13:27:00 23:59:59 CLS Outpatient LILLIAN HERRERA MD [facility] RAD R FLANK PAIN [id number] 10/05/2019 22:44:00 01:17:00 DIS Outpatient JAE BARAHONA DO [facility] ER FS VOMITING,RIGHT SIDE ABD PAIN [id number] 10/04/2019 08:41:00 23:59:59 CLS Outpatient RADHA VALIENTE, NORBERTO V [facility] LAB FS CHRONIC LYMPHOCYTIC ADEEL KEMIA OF B-CELL [id number] 02/04/2019 08:45:00 23:59:59 CLS Preadmit ERMELINDA [facility] [employer] [facility] RAD FS LOW TSH LEVEL [id number] 09/27/2018 09:48:00 23:59:59 CLS Outpatient RADHA VALIENTE, NORBERTO V [facility] RAD FS CHRONIC LYMPHOCYTIC ADEEL KEMIA C91.11 [id number] 10/25/2019 11:45:00 P EN Preadmit JAVIER VALIENTE, LILLIAN [facility] [address] RIGHT URETERAL STONE [id number] 10/22/2018 20:09:36 ACT Unknown [id number] 10/23/2018 00:46:54 ACT Document Registration
--- NOTE | 2019-10-25 07:08 | Progress Note-Pre Operative ---
Pre-Operative Progress Note H&P Reviewed The H&P was reviewed, patient examined and no changes noted. Date Seen by Provider: Oct 25, 2019 Time Seen by Provider: 07:13 Date H&P Reviewed: Oct 25, 2019 Time H&P Reviewed: 07:13 Pre-Operative Diagnosis: RT DISTAL URETERAL STONE LILLIAN HERRERA MD Oct 25, 2019 07:08
[2019-10-25] MEDS ORDERED: LACTATED RINGERS 1,000 ML IV PRN (07:26)
[2019-10-25] MEDS ORDERED: cefTRIAXone FOR IV USE 1,000 MG in WATER (STERILE) FOR INJECTION 10 ML IV ONE (07:30)
[2019-10-25] MEDS ORDERED: CATHETER FLUSH 10 ML SYR IV PRN (08:00)
--- NOTE | 2019-10-25 08:20 | Progress Note-Post Operative ---
Post-Operative Progess Note Surgeon (s)/Public Health Teacher (s) Surgeon LILLIAN HERRERA MD Public Health Teacher: NONE Pre-Operative Diagnosis RT DISTAL URETERAL STONE Post-Operative Diagnosis SAME Procedure & Operative Findings Date of Procedure 10/25/19 Procedure Performed/Findings RT URETEROSCOPY WITH STONE LITHOTRIPSY Anesthesia Type GENERAL Estimated Blood Loss Estimated blood loss (mL): NONE Specimens/Packing Specimens Removed NONE Packing: NONE LILLIAN HERRERA MD Oct 25, 2019 08:20
--- NOTE | 2019-10-25 08:22 | Discharge Inst-Urology ---
Discharge Inst-Urology Reconcile Patient Problems Problems Reviewed?: Yes Final Diagnosis RT DISTAL URETERAL STONE Patient Instructions/Follow Up Plan/Assessment/Instructions Please make appointment to been seen in office in 4 weeks. Increase oral fluids for 48 hours and then as needed. Diet and Activity as tolerated. If questions or concerns contact your physician Or seek help at emergency department. LILLIAN HERRERA MD Oct 25, 2019 08:22
[2019-10-25] MEDS ORDERED: fentaNYL INJECTION 100 MCG/2 ML AMP ONE (08:32)
[2019-10-25] MEDS ORDERED: MIDAZOLAM 2 MG/2 ML (VERSED) VIAL ONE (08:32)
--- NOTE | 2019-10-25 08:32 | Diagnostic Imaging Report ---
EXAMINATION: Abdominal radiographs, single view. DATE: October 25, 2019. CLINICAL INDICATION: 49-year-old male, evaluation for right ureteral stone. COMPARISON: KUB October 11, 2019. CT abdomen pelvis October 20, 2019. COMMENTS: The previously noted abnormal radiodensity just to the right of midline at the level of the sacrum is no longer radiographically visible. This could reflect interval passage of previously noted right ureteral stone. There is no currently identified abnormal radiodensity overlying the expected positions of the kidneys or ureters. There are no abnormally dilated gas-filled segments of bowel. The upper abdomen is incompletely imaged. IMPRESSION: 1. Previously noted abnormal radiodensity reflecting the right distal ureteral stone is not currently visible radiographically and could reflect interval passage of previously noted stone. Should be noted that radiographs are not particularly sensitive for detection of ureteral stone compared to CT. 2. No currently visible acute abdominal radiographic abnormality. Dictated by: Dictated on workstation # [id number]
[2019-10-25] MEDS ORDERED: proPOfol 200 MG/20 ML (DIPRIVAN) VIAL IV ONE (08:43)
[2019-10-25] MEDS ORDERED: LIDOCAINE PF 2% 5 ML (XYLOCAINE) VIAL ONE (08:43)
[2019-10-25] MEDS ORDERED: ONDANSETRON 4 MG/2 ML (SDV) Z0FRAN ONE (08:43)
[2019-10-25] MEDS ORDERED: SEVOFLURANE (ULTANE) 15 ML INHAL SOLN ONE (08:43)
[2019-10-25] MEDS ORDERED: KETOROLAC 30 MG/ML VIAL ONE (09:12)
[2019-10-25] MEDS ORDERED: FUROSEMIDE 40 MG/4 ML INJ (LASIX) ONE (09:12)
[2019-10-25] MEDS ORDERED: morphine INJ 10 MG/ML 1ML (SYR OR VIAL) IVP ONE (09:30)
[2019-10-25] MEDS ORDERED: ONDANSETRON 4 MG/2 ML (SDV) Z0FRAN IVP PRN (09:30)
--- NOTE | 2019-10-25 09:30 | Anesthesia-General Post-Op ---
General Patient Condition Mental Status/LOC: Same as Preop Cardiovascular: Satisfactory Nausea/Vomiting: Absent Respiratory: Satisfactory Pain: Controlled Complications: Absent Post Op Complications Complications None Follow Up Care/Instructions Patient Instructions None needed. Anesthesia/Patient Condition Patient Condition Patient is doing well, no complaints, stable vital signs, no apparent adverse anesthesia problems. No complications reported per nursing. GERARDO SELLERS CRNA Oct 25, 2019 09:30
--- NOTE | 2019-10-25 10:00 | NUR ---
TO AMB SURG FROM PAR PER CART. ALERT, RATES RIGHT LOWER PELVIC PAIN 3. NO BLEEDING FROM MEATUS. PO FLUIDS PROVIDED.
[2019-10-25] MEDS ORDERED: PHENAZOPYRIDINE 100 MG (PYRIDIUM) TABLET PO ONE (10:15)
[2019-10-25] MEDS ORDERED: PHENAZOPYRIDINE 100 MG (PYRIDIUM) TABLET ONE (10:16)
--- NOTE | 2019-10-25 10:23 | OPERATIVE REPORT ---
DATE OF SERVICE: 10/25/2019 PREOPERATIVE DIAGNOSIS: Right distal ureteral stone. POSTOPERATIVE DIAGNOSIS: Right distal ureteral stone. OPERATION PERFORMED: Right ureteroscopy with stone lithotripsy. SURGEON: Jamari Herrera MD ANESTHESIA: General. COMPLICATIONS: None. DESCRIPTION OF PROCEDURE: Under satisfactory general anesthesia, the patient in lithotomy position, genitalia were prepped and draped in the usual sterile fashion. Cystoscope was introduced under vision. The anterior urethra was normal. There was a wide caliber urethral stricture just distal to the sphincter admitting the scope. The prostate was not enlarged. There was some median bar, but no significant bladder neck obstruction. The bladder was entered and the only abnormality was an edematous, hyperemic, intramural ureteral portion and I could see the stone through the opening. I was able to dilate the orifice intramural portion to accommodate a 6.9 Bengali semi-rigid ureteroscope. I visualized the stone. I broke it up with the lithoclast starting at a power of 5 in order not to lose the stone, then power of 12. I had to selena the stone fragments somewhat proximally still in the distal ureter. I completely fragmented the stones. Some of the fragments fell into the bladder. I irrigated the ureter. I went above the area of the stone, there were no further stones or fragment. I removed the ureteroscope, reinserted the cystoscope to empty the bladder. The patient tolerated the procedure and anesthesia well and was sent to recovery room in stable condition. Job ID: [id number] DocumentID: [id number] Dictated Date: 10/25/2019 09:24:07 Wheel And Axle Inspector Date: 10/25/2019 10:22:40 Dictated By: JAMARI HERRERA MD
--- NOTE | 2019-10-25 10:30 | NUR ---
PYRIDIUM 200 MG GIVEN PO FOR BLADDER/URETHRAL DISCOMFORT RATED 3. HAS VOIDED 300 CC CLEAR, LIGHT PINK URINE, STRAINED, WITH STONE PARTICLES PASSED. PARTICLES TRANSFERRED TO COLLECTION CONTAINER.
[2019-10-25] MEDS ORDERED: TRM50T PO ×2 (10:36)
[2019-10-25] MEDS ORDERED: SULF1TAB35 PO ×2 (10:36)
[2019-10-25] MEDS ORDERED: PHEN-640 PO ×2 (10:36)
--- NOTE | 2019-10-25 11:00 | NUR ---
HAS VOIDED ADDITIONAL LIGHT PINK URINE WITH STONE PARTICLES PASSED. PAIN RATED 2, BUT 3-4 WITH URINATION. TAKING PO FLUIDS WITHOUT PROBLEM. PRESCRIPTIONS CALLED TO [facility], [facility], [place]. STATES HE IS READY FOR DISMISSAL.
== END 2019-10-25 11:10 | disposition home or self-care (01) ==
LOC: SDC 06:56
PROVIDERS: ATTEND Urology
DX: N20.1 Calculus of ureter (principal); N40.0 Benign prostatic hyperplasia without lower urinary tract symptoms; K21.9 Gastro-esophageal reflux disease without esophagitis; C91.10 Chronic lymphocytic leukemia of B-cell type not having achieved remission; Z88.5 Allergy status to narcotic agent; Z20.828 Contact with and (suspected) exposure to other viral communicable diseases
CPT/HCPCS: 52353; 74018; 76000; 87081; U0002; 87635

== ENCOUNTER → 2019-11-28 | Outpatient (CLI) | payer BC ==
[~2019-11-28] MED LIST changes: +PHEN-640 PO; +SULF1TAB35 PO; +TRM50T PO
[2019-11-28 15:49] LABS: BASOPHILS % (AUTO) 0 % (0-10); EOSINOPHILS % (AUTO) 0 % (0-10); HEMATOCRIT 31 % (40-54); HEMOGLOBIN 10.6 G/DL (13.3-17.7); LYMPHOCYTES # (AUTO) 2.4 X 10^3 (1.0-4.0); LYMPHOCYTES % (AUTO) 37 % (12-44); MEAN CORPUSCULAR HEMOGLOBIN 32 PG (25-34); MEAN CORPUSCULAR HGB CONC 34 G/DL (32-36); MEAN CORPUSCULAR VOLUME 94 FL (80-99); MONOCYTES # (AUTO) 1.4 X 10^3 (0.0-1.0); MONOCYTES % (AUTO) 20 % (0-12); NEUTROPHILS # (AUTO) 2.8 X 10^3 (1.8-7.8); NEUTROPHILS % (AUTO) 42 % (42-75); PLATELET COUNT 100 10^3/uL (130-400); RED CELL DISTRIBUTION WIDTH 14.9 % (10.0-14.5); WHITE BLOOD COUNT 6.7 10^3/uL (4.3-11.0)
[2019-11-28 16:02] LABS: ATYPICAL LYMPHOCYTES 20 %; LYMPHOCYTES % (MANUAL) 17 %; MONOCYTES % (MANUAL) 16 %; NEUTROPHILS % (MANUAL) 47 %
[2019-11-28 16:03] LABS: ANISOCYTOSIS SLIGHT
[2019-11-28 16:07] LABS: ALANINE AMINOTRANSFERASE 19 U/L (0-55); ALBUMIN 4.6 GM/DL (3.2-4.5); ALKALINE PHOSPHATASE 108 U/L (40-136); BILIRUBIN,TOTAL 0.4 MG/DL (0.1-1.0); BUN/CREATININE RATIO 21; CARBON DIOXIDE 22 MMOL/L (21-32); CHLORIDE 106 MMOL/L (98-107); CREATININE SERUM 1.35 MG/DL (0.60-1.30); GFR ESTIMATED 56; GLUCOSE 107 MG/DL (70-105); POTASSIUM 4.4 MMOL/L (3.6-5.0); SODIUM 139 MMOL/L (135-145); TOTAL PROTEIN 6.7 GM/DL (6.4-8.2)
== END ==
LOC: LAB FS 14:53
PROVIDERS: ATTEND Internal Medicine Hematology & Oncology
DX: C91.11 Chronic lymphocytic leukemia of B-cell type in remission (principal)
CPT/HCPCS: 36415; 80053; 82232; 82784; 83615; 85007; 85027

== ENCOUNTER 2019-12-07 16:22 | Outpatient (RCR) | payer BC ==
[2019-12-07 16:50] LABS: HEMATOCRIT 31 % (40-54); HEMOGLOBIN 10.4 G/DL (13.3-17.7); MEAN CORPUSCULAR HEMOGLOBIN 32 PG (25-34); MEAN CORPUSCULAR HGB CONC 33 G/DL (32-36); MEAN CORPUSCULAR VOLUME 95 FL (80-99); MEAN PLATELET VOLUME 8.9 FL (7.4-10.4); PLATELET COUNT 111 10^3/uL (130-400); WHITE BLOOD COUNT 4.1 10^3/uL (4.3-11.0)
[2019-12-07 16:51] LABS: BASOPHILS % (AUTO) 0 % (0-10); EOSINOPHILS % (AUTO) 0 % (0-10); LYMPHOCYTES # (AUTO) 1.4 X 10^3 (1.0-4.0); LYMPHOCYTES % (AUTO) 33 % (12-44); MONOCYTES # (AUTO) 0.7 X 10^3 (0.0-1.0); MONOCYTES % (AUTO) 17 % (0-12); NEUTROPHILS % (AUTO) 50 % (42-75)
[2019-12-07 17:08] LABS: CREATININE SERUM 1.27 MG/DL (0.60-1.30); POTASSIUM 4.1 MMOL/L (3.6-5.0)
[2019-12-07 17:09] LABS: ALBUMIN 4.3 GM/DL (3.2-4.5); BILIRUBIN,TOTAL 0.4 MG/DL (0.1-1.0); CALCIUM 9.2 MG/DL (8.5-10.1); MAGNESIUM 2.2 MG/DL (1.6-2.4); TOTAL PROTEIN 6.3 GM/DL (6.4-8.2)
[2019-12-08 15:00] LABS: PHOSPHORUS 4.5 MG/DL (2.3-4.7)
[2019-12-21 15:00] LABS: BASOPHILS % (AUTO) 0 % (0-10); EOSINOPHILS % (AUTO) 0 % (0-10); HEMATOCRIT 32 % (40-54); HEMOGLOBIN 10.6 G/DL (13.3-17.7); LYMPHOCYTES # (AUTO) 1.3 X 10^3 (1.0-4.0); LYMPHOCYTES % (AUTO) 33 % (12-44); MEAN CORPUSCULAR HEMOGLOBIN 32 PG (25-34); MEAN CORPUSCULAR HGB CONC 33 G/DL (32-36); MEAN CORPUSCULAR VOLUME 96 FL (80-99); MEAN PLATELET VOLUME 8.8 FL (7.4-10.4); MONOCYTES # (AUTO) 0.5 X 10^3 (0.0-1.0); MONOCYTES % (AUTO) 11 % (0-12); NEUTROPHILS # (AUTO) 2.3 X 10^3 (1.8-7.8); NEUTROPHILS % (AUTO) 56 % (42-75); PLATELET COUNT 134 10^3/uL (130-400)
[2019-12-21 15:22] LABS: ALANINE AMINOTRANSFERASE 25 U/L (0-55); ALKALINE PHOSPHATASE 89 U/L (40-136); BILIRUBIN,TOTAL 0.4 MG/DL (0.1-1.0); BUN/CREATININE RATIO 14; CALCIUM 8.8 MG/DL (8.5-10.1); CARBON DIOXIDE 23 MMOL/L (21-32); CHLORIDE 110 MMOL/L (98-107); CREATININE SERUM 1.21 MG/DL (0.60-1.30); GFR ESTIMATED > 60; GLUCOSE 112 MG/DL (70-105); MAGNESIUM 2.2 MG/DL (1.6-2.4); POTASSIUM 3.8 MMOL/L (3.6-5.0); SODIUM 144 MMOL/L (135-145); TOTAL PROTEIN 6.2 GM/DL (6.4-8.2)
[2019-12-21 15:23] LABS: ALBUMIN 4.3 GM/DL (3.2-4.5)
[2019-12-22 14:28] LABS: PHOSPHORUS 3.3 MG/DL (2.3-4.7)
== END 2020-03-06 | disposition home or self-care (01) ==
LOC: LAB FS 16:22 → EDSTATUS 12-08 11:44
PROVIDERS: ATTEND Internal Medicine Hematology & Oncology
DX: C91.12 Chronic lymphocytic leukemia of B-cell type in relapse (principal)
CPT/HCPCS: 36415; 80053; 82784; 83615; 83735; 84100; 85025

== ENCOUNTER → 2020-01-17 | Outpatient (CLI) | payer BC ==
[2020-01-17 16:08] LABS: WHITE BLOOD COUNT 5.4 10^3/uL (4.3-11.0)
[2020-01-17 16:09] LABS: BASOPHILS % (AUTO) 0 % (0-10); EOSINOPHILS % (AUTO) 0 % (0-10); HEMATOCRIT 34 % (40-54); HEMOGLOBIN 11.6 G/DL (13.3-17.7); LYMPHOCYTES # (AUTO) 1.4 X 10^3 (1.0-4.0); LYMPHOCYTES % (AUTO) 25 % (12-44); MEAN CORPUSCULAR HEMOGLOBIN 32 PG (25-34); MEAN CORPUSCULAR HGB CONC 34 G/DL (32-36); MEAN CORPUSCULAR VOLUME 93 FL (80-99); MEAN PLATELET VOLUME 8.6 FL (7.4-10.4); MONOCYTES # (AUTO) 0.5 X 10^3 (0.0-1.0); MONOCYTES % (AUTO) 10 % (0-12); NEUTROPHILS # (AUTO) 3.5 X 10^3 (1.8-7.8); NEUTROPHILS % (AUTO) 65 % (42-75); PLATELET COUNT 152 10^3/uL (130-400)
[2020-01-17 16:30] LABS: ALANINE AMINOTRANSFERASE 34 U/L (0-55); ALBUMIN 4.5 GM/DL (3.2-4.5); ALKALINE PHOSPHATASE 98 U/L (40-136); BILIRUBIN,TOTAL 0.4 MG/DL (0.1-1.0); BUN/CREATININE RATIO 19; CARBON DIOXIDE 25 MMOL/L (21-32); CHLORIDE 110 MMOL/L (98-107); GFR ESTIMATED > 60; GLUCOSE 114 MG/DL (70-105); SODIUM 144 MMOL/L (135-145); TOTAL PROTEIN 6.7 GM/DL (6.4-8.2)
== END ==
LOC: LAB FS 15:50
PROVIDERS: ATTEND Internal Medicine Hematology & Oncology
DX: C91.12 Chronic lymphocytic leukemia of B-cell type in relapse (principal)
CPT/HCPCS: 36415; 80053; 82784; 83615; 85025

== ENCOUNTER → 2020-02-14 | Outpatient (CLI) | payer BC ==
[2020-02-14 16:48] LABS: BASOPHILS % (AUTO) 0 % (0-10); EOSINOPHILS % (AUTO) 0 % (0-10); HEMATOCRIT 35 % (40-54); HEMOGLOBIN 12.3 G/DL (13.3-17.7); LYMPHOCYTES # (AUTO) 1.2 X 10^3 (1.0-4.0); LYMPHOCYTES % (AUTO) 28 % (12-44); MEAN CORPUSCULAR HEMOGLOBIN 32 PG (25-34); MEAN CORPUSCULAR HGB CONC 35 G/DL (32-36); MEAN CORPUSCULAR VOLUME 91 FL (80-99); MEAN PLATELET VOLUME 8.8 FL (7.4-10.4); MONOCYTES # (AUTO) 0.5 X 10^3 (0.0-1.0); MONOCYTES % (AUTO) 11 % (0-12); NEUTROPHILS # (AUTO) 2.6 X 10^3 (1.8-7.8); NEUTROPHILS % (AUTO) 60 % (42-75); PLATELET COUNT 153 10^3/uL (130-400); WHITE BLOOD COUNT 4.3 10^3/uL (4.3-11.0)
[2020-02-14 17:09] LABS: ALANINE AMINOTRANSFERASE 44 U/L (0-55); ALBUMIN 4.5 GM/DL (3.2-4.5); ALKALINE PHOSPHATASE 108 U/L (40-136); BILIRUBIN,TOTAL 0.4 MG/DL (0.1-1.0); BUN/CREATININE RATIO 14; CALCIUM 9.1 MG/DL (8.5-10.1); CARBON DIOXIDE 25 MMOL/L (21-32); CHLORIDE 108 MMOL/L (98-107); CREATININE SERUM 1.23 MG/DL (0.60-1.30); GFR ESTIMATED > 60; GLUCOSE 110 MG/DL (70-105); SODIUM 143 MMOL/L (135-145); TOTAL PROTEIN 6.4 GM/DL (6.4-8.2)
== END ==
LOC: LAB FS 16:02
PROVIDERS: ATTEND Internal Medicine Hematology & Oncology
DX: C91.12 Chronic lymphocytic leukemia of B-cell type in relapse (principal)
CPT/HCPCS: 36415; 80053; 83615; 85025

== ENCOUNTER → 2020-03-13 | Outpatient (CLI) | payer BC ==
[2020-03-13 16:16] LABS: BASOPHILS % (AUTO) 0 % (0-10); EOSINOPHILS % (AUTO) 0 % (0-10); HEMATOCRIT 37 % (40-54); LYMPHOCYTES # (AUTO) 1.2 X 10^3 (1.0-4.0); LYMPHOCYTES % (AUTO) 30 % (12-44); MEAN CORPUSCULAR HEMOGLOBIN 32 PG (25-34); MEAN CORPUSCULAR HGB CONC 36 G/DL (32-36); MEAN CORPUSCULAR VOLUME 89 FL (80-99); MEAN PLATELET VOLUME 8.8 FL (7.4-10.4); MONOCYTES # (AUTO) 0.5 X 10^3 (0.0-1.0); MONOCYTES % (AUTO) 12 % (0-12); NEUTROPHILS # (AUTO) 2.3 X 10^3 (1.8-7.8); NEUTROPHILS % (AUTO) 56 % (42-75); PLATELET COUNT 150 10^3/uL (130-400)
[2020-03-13 16:37] LABS: ALANINE AMINOTRANSFERASE 43 U/L (0-55); ALKALINE PHOSPHATASE 116 U/L (40-136); BILIRUBIN,TOTAL 0.3 MG/DL (0.1-1.0); BUN/CREATININE RATIO 14; CALCIUM 9.2 MG/DL (8.5-10.1); CARBON DIOXIDE 24 MMOL/L (21-32); CHLORIDE 109 MMOL/L (98-107); CREATININE SERUM 1.16 MG/DL (0.60-1.30); GFR ESTIMATED > 60; GLUCOSE 114 MG/DL (70-105); POTASSIUM 3.9 MMOL/L (3.6-5.0); SODIUM 145 MMOL/L (135-145); TOTAL PROTEIN 6.5 GM/DL (6.4-8.2)
[2020-03-13 16:38] LABS: ALBUMIN 4.2 GM/DL (3.2-4.5)
== END ==
LOC: LAB FS 16:02
PROVIDERS: ATTEND Internal Medicine Hematology & Oncology
DX: C91.12 Chronic lymphocytic leukemia of B-cell type in relapse (principal)
CPT/HCPCS: 36415; 80053; 83615; 85025

== ENCOUNTER → 2020-04-10 | Outpatient (CLI) | payer BC ==
[2020-04-10 17:58] LABS: HEMATOCRIT 37 % (40-54); HEMOGLOBIN 13.1 G/DL (13.3-17.7); MEAN CORPUSCULAR HEMOGLOBIN 31 PG (25-34)
[2020-04-10 17:59] LABS: BASOPHILS % (AUTO) 0 % (0-10); EOSINOPHILS % (AUTO) 0 % (0-10); LYMPHOCYTES # (AUTO) 1.2 X 10^3 (1.0-4.0); LYMPHOCYTES % (AUTO) 39 % (12-44); MEAN CORPUSCULAR HGB CONC 35 G/DL (32-36); MEAN CORPUSCULAR VOLUME 89 FL (80-99); MEAN PLATELET VOLUME 8.8 FL (7.4-10.4); MONOCYTES % (AUTO) 21 % (0-12); NEUTROPHILS # (AUTO) 1.2 X 10^3 (1.8-7.8); NEUTROPHILS % (AUTO) 39 % (42-75); PLATELET COUNT 167 10^3/uL (130-400)
[2020-04-10 18:10] LABS: BUN/CREATININE RATIO 12; CARBON DIOXIDE 25 MMOL/L (21-32); CHLORIDE 110 MMOL/L (98-107); CREATININE SERUM 1.25 MG/DL (0.60-1.30); GFR ESTIMATED > 60; GLUCOSE 124 MG/DL (70-105); POTASSIUM 4.1 MMOL/L (3.6-5.0); SODIUM 144 MMOL/L (135-145)
[2020-04-10 18:11] LABS: ALANINE AMINOTRANSFERASE 32 U/L (0-55); ALBUMIN 4.4 GM/DL (3.2-4.5); ALKALINE PHOSPHATASE 110 U/L (40-136); BILIRUBIN,TOTAL 0.4 MG/DL (0.1-1.0); CALCIUM 9.1 MG/DL (8.5-10.1); TOTAL PROTEIN 6.6 GM/DL (6.4-8.2)
== END ==
LOC: LAB FS 17:06
PROVIDERS: ATTEND Internal Medicine Hematology & Oncology
DX: C91.12 Chronic lymphocytic leukemia of B-cell type in relapse (principal)
CPT/HCPCS: 36415; 80053; 83615; 85025

== ENCOUNTER → 2020-05-01 | Outpatient (CLI) | payer BC ==
[~2020-05-01] MED LIST changes: +CATHETER FLUSH 10 ML SYR IV PRN; +HOLD METFORMIN - RECEIVED CONTRAST 20 ML VIAL IV SCH; +IOHEXOL 350 MG/ML 150 ML (OMNIPAQUE 350) VIAL IV ONE; +NS 100 ML (IVPB) BAG IV ONE
--- NOTE | 2020-05-01 11:14 | Diagnostic Imaging Report ---
EXAMINATION: CT Neck, Chest, Abdomen and Pelvis with intravenous contrast. TECHNIQUE: Multiple contiguous axial images were obtained through the neck, chest, abdomen and pelvis after the uneventful administration of intravenous contrast. All CT scans use one or more of the following dose optimizing techniques: automated exposure control, MA and/or KvP adjustment based on a patient size and exam type, or iterative reconstruction. HISTORY: Chronic lymphocytic leukemia. COMPARISON: 10/04/2019 FINDINGS: Neck CT: Previously seen lymphadenopathy has resolved. A previously seen left level III lymph node measures 10 mm, previously 17 mm in short axis. Other enlarged lymph nodes have also improved including a right level III lymph node which measures 6 mm, previously 20 mm in short axis. The muscles of the neck are normal. Vessels of the neck demonstrate normal course and caliber. Fascial planes are preserved and the deep spaces of the neck are normal. The visualized airway is widely patent. The base of the skull and the temporal bones are normal. Limited views of the brain including the cerebellum and brainstem are normal. The limited view of the [place] is unremarkable. The visualized portions of the orbits are normal. The spinal canal is normal in caliber. Intervertebral disk heights are normal. Neural foramina are normal. Chest CT: There is no edema or pneumonia. No pleural effusion. No pneumothorax. No suspicious nodules. Previously seen axillary lymphadenopathy is resolved. All lymph nodes in both axillae are less than a centimeter in short axis now. Likewise the mediastinal lymphadenopathy has resolved. All lymph nodes are measuring less than 8 mm in short axis in the mediastinum. Right-sided port catheter is present. The tip is within the right axillary vein. Heart size is normal. There are no coronary artery calcifications. No pericardial effusion. Aorta is normal in caliber. Abdomen and Pelvis CT: The liver is normal without focal lesion. There is no biliary ductal dilation. Gallbladder is normal. Pancreas is normal. Spleen is normal. Adrenal glands are normal. Simple cysts are seen in the kidneys. No suspicious renal lesions. There is no hydronephrosis. Urinary bladder is normal. Visualized bowel is normal in caliber without obstruction or inflammation. No free fluid or air. The previously seen fairly extensive retroperitoneal mesenteric, iliac and inguinal lymphadenopathy has all resolved. The largest remaining lymph nodes measure 8-9 mm. 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 Aorta is normal in caliber without aneurysm. There are no suspicious osseous lesions. IMPRESSION: 1. Previously seen lymphadenopathy has resolved, no pathologically enlarged lymph nodes are seen in the neck, chest, abdomen or pelvis. 2. The port catheter tip is malpositioned with the tip in the right axillary vein. 3. 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 Dictated by: Dictated on workstation # [id number]
== END ==
LOC: RAD 09:37
PROVIDERS: ATTEND Internal Medicine Hematology & Oncology
DX: C91.12 Chronic lymphocytic leukemia of B-cell type in relapse (principal); T82.898A Other specified complication of vascular prosthetic devices, implants and grafts, initial encounter
CPT/HCPCS: 70491; 71260; 74176

== ENCOUNTER → 2020-05-08 | Outpatient (CLI) | payer BC ==
[~2020-05-08] MED LIST changes: -CATHETER FLUSH 10 ML SYR IV PRN; -HOLD METFORMIN - RECEIVED CONTRAST 20 ML VIAL IV SCH; -IOHEXOL 350 MG/ML 150 ML (OMNIPAQUE 350) VIAL IV ONE; -NS 100 ML (IVPB) BAG IV ONE
[2020-05-08 16:19] LABS: BASOPHILS % (AUTO) 0 % (0-10); EOSINOPHILS % (AUTO) 0 % (0-10); HEMATOCRIT 39 % (40-54); HEMOGLOBIN 13.2 G/DL (13.3-17.7); LYMPHOCYTES # (AUTO) 1.2 X 10^3 (1.0-4.0); LYMPHOCYTES % (AUTO) 22 % (12-44); MEAN CORPUSCULAR HEMOGLOBIN 31 PG (25-34); MEAN CORPUSCULAR HGB CONC 34 G/DL (32-36); MEAN CORPUSCULAR VOLUME 92 FL (80-99); MEAN PLATELET VOLUME 8.8 FL (7.4-10.4); MONOCYTES # (AUTO) 0.5 X 10^3 (0.0-1.0); MONOCYTES % (AUTO) 9 % (0-12); NEUTROPHILS # (AUTO) 3.8 X 10^3 (1.8-7.8); NEUTROPHILS % (AUTO) 69 % (42-75); PLATELET COUNT 168 10^3/uL (130-400); WHITE BLOOD COUNT 5.6 10^3/uL (4.3-11.0)
[2020-05-08 16:44] LABS: POTASSIUM 3.9 MMOL/L (3.6-5.0)
[2020-05-08 16:45] LABS: ALBUMIN 4.4 GM/DL (3.2-4.5); BILIRUBIN,TOTAL 0.3 MG/DL (0.1-1.0); CALCIUM 9.2 MG/DL (8.5-10.1); CREATININE SERUM 1.5 MG/DL (0.60-1.30); TOTAL PROTEIN 6.7 GM/DL (6.4-8.2)
== END ==
LOC: LAB FS 15:55
PROVIDERS: ATTEND Internal Medicine Hematology & Oncology
DX: C91.12 Chronic lymphocytic leukemia of B-cell type in relapse (principal)
CPT/HCPCS: 36415; 80053; 83615; 85025

== ENCOUNTER → 2020-05-17 | Outpatient (CLI) | payer OTHER, BC ==
--- NOTE | 2020-05-17 14:06 | Diagnostic Imaging Report ---
INDICATION: Fall yesterday. Left shoulder pain. FINDINGS: 3 views. Glenohumeral joints in good alignment. Articulating surfaces are smooth. Joint spaces are well-maintained. Coracoid is intact. AC joint shows good alignment with moderate hypertrophic change. No fractures demonstrated. IMPRESSION: Moderate arthritic changes with no acute abnormalities. Dictated by: Dictated on workstation # [id number]
== END ==
LOC: RAD FS 13:35
PROVIDERS: ATTEND Nurse Practitioner
DX: S40.012A Contusion of left shoulder, initial encounter (principal); M19.012 Primary osteoarthritis, left shoulder; W19.XXXA Unspecified fall, initial encounter
CPT/HCPCS: 73030

== ENCOUNTER → 2020-08-20 | Outpatient (CLI) | payer BC, OTHER ==
[2020-08-20 11:26] LABS: WHITE BLOOD COUNT 4.2 10^3/uL (4.3-11.0)
[2020-08-20 11:27] LABS: HEMATOCRIT 39 % (40-54); HEMOGLOBIN 13.3 G/DL (13.3-17.7); MEAN CORPUSCULAR HEMOGLOBIN 31 PG (25-34); MEAN CORPUSCULAR HGB CONC 34 G/DL (32-36); MEAN CORPUSCULAR VOLUME 92 FL (80-99); MEAN PLATELET VOLUME 8.8 FL (7.4-10.4); PLATELET COUNT 156 10^3/uL (130-400)
[2020-08-20 11:50] LABS: BILIRUBIN,TOTAL 0.4 MG/DL (0.1-1.0); BUN/CREATININE RATIO 14; CARBON DIOXIDE 24 MMOL/L (21-32); CHLORIDE 106 MMOL/L (98-107); CREATININE SERUM 1.09 MG/DL (0.60-1.30); GFR ESTIMATED > 60; GLUCOSE 155 MG/DL (70-105); POTASSIUM 3.5 MMOL/L (3.6-5.0); SODIUM 142 MMOL/L (135-145)
[2020-08-20 11:51] LABS: ALANINE AMINOTRANSFERASE 44 U/L (0-55); ALBUMIN 4.3 GM/DL (3.2-4.5); ALKALINE PHOSPHATASE 179 U/L (40-136); TOTAL PROTEIN 6.5 GM/DL (6.4-8.2)
[2020-08-20 12:08] LABS: ERYTHROCYTE SEDIMENTATION RATE 13 MM/HR (0-30)
== END ==
LOC: LAB FS 10:55
PROVIDERS: ATTEND Internal Medicine Hematology & Oncology
DX: C91.12 Chronic lymphocytic leukemia of B-cell type in relapse (principal)
CPT/HCPCS: 36415; 80053; 82232; 82784; 83615; 83735; 83883; 84155; 84165; 85027; 85652

== ENCOUNTER → 2020-11-09 | Outpatient (CLI) | payer BC ==
[~2020-11-09] MED LIST changes: -SULF1TAB35 PO; +SULF1TAB38 PO
[2020-11-09 16:14] LABS: HEMATOCRIT 36 % (40-54); HEMOGLOBIN 12.2 G/DL (13.3-17.7); LYMPHOCYTES % (AUTO) 23 % (12-44); MEAN CORPUSCULAR HEMOGLOBIN 31 PG (25-34); MEAN CORPUSCULAR HGB CONC 34 G/DL (32-36); MEAN CORPUSCULAR VOLUME 92 FL (80-99); MEAN PLATELET VOLUME 8.6 FL (7.4-10.4); NEUTROPHILS % (AUTO) 68 % (42-75); PLATELET COUNT 148 10^3/uL (130-400); WHITE BLOOD COUNT 5.2 10^3/uL (4.3-11.0)
[2020-11-09 16:15] LABS: BASOPHILS % (AUTO) 0 % (0-10); EOSINOPHILS % (AUTO) 0 % (0-10); LYMPHOCYTES # (AUTO) 1.2 X 10^3 (1.0-4.0); MONOCYTES # (AUTO) 0.5 X 10^3 (0.0-1.0); MONOCYTES % (AUTO) 9 % (0-12); NEUTROPHILS # (AUTO) 3.6 X 10^3 (1.8-7.8)
[2020-11-09 16:36] LABS: BILIRUBIN,TOTAL 0.5 MG/DL (0.1-1.0); CALCIUM 9.2 MG/DL (8.5-10.1); CREATININE SERUM 1.12 MG/DL (0.60-1.30); POTASSIUM 3.5 MMOL/L (3.6-5.0); TOTAL PROTEIN 6.3 GM/DL (6.4-8.2)
[2020-11-09 16:37] LABS: ALBUMIN 4.2 GM/DL (3.2-4.5)
== END ==
LOC: LAB FS 15:44
PROVIDERS: ATTEND Internal Medicine Hematology & Oncology
DX: C91.12 Chronic lymphocytic leukemia of B-cell type in relapse (principal)
CPT/HCPCS: 36415; 80053; 82784; 83615; 85025

== ENCOUNTER → 2021-02-25 | Outpatient (CLI) | payer BC ==
[2021-02-25 16:37] LABS: HEMATOCRIT 39 % (40-54); HEMOGLOBIN 13.6 g/dL (13.3-17.7); MEAN CORPUSCULAR HEMOGLOBIN 32 pg (25-34); MEAN CORPUSCULAR HGB CONC 35 g/dL (32-36); MEAN CORPUSCULAR VOLUME 91 fL (80-99); MEAN PLATELET VOLUME 8.7 fL (9.0-12.2); NEUTROPHILS % (AUTO) 69 % (42-75); PLATELET COUNT 178 10^3/uL (130-400); WHITE BLOOD COUNT 6.2 10^3/uL (4.3-11.0)
[2021-02-25 16:38] LABS: BASOPHILS % (AUTO) 0 % (0-10); EOSINOPHILS % (AUTO) 0 % (0-10); LYMPHOCYTES # (AUTO) 1.4 X 10^3 (1.0-4.0); LYMPHOCYTES % (AUTO) 22 % (12-44); MONOCYTES # (AUTO) 0.5 X 10^3 (0.0-1.0); MONOCYTES % (AUTO) 9 % (0-12); NEUTROPHILS # (AUTO) 4.3 X 10^3 (1.8-7.8)
[2021-02-25 16:51] LABS: ALBUMIN 4.3 GM/DL (3.2-4.5); BILIRUBIN,TOTAL 0.3 MG/DL (0.1-1.0); CALCIUM 9.2 MG/DL (8.5-10.1); CREATININE SERUM 1.09 MG/DL (0.60-1.30); POTASSIUM 3.9 MMOL/L (3.6-5.0); TOTAL PROTEIN 6.9 GM/DL (6.4-8.2)
== END ==
LOC: LAB FS 15:51
PROVIDERS: ATTEND Internal Medicine Hematology & Oncology
DX: Z01.89 Encounter for other specified special examinations (principal)
CPT/HCPCS: 36415; 80053; 82728; 82784; 83540; 83550; 83615; 85025

== ENCOUNTER 2021-03-28 09:55 | Outpatient (CLI) | payer BC ==
[~2021-03-28] VITALS: Ht 180.3 cm; Wt 130.2 kg
[2021-03-28 10:12] VITALS: BP 142/75
[2021-03-28] MEDS ORDERED: BAMLANIVIMAB 700 MG/ETESEVIMAB 1,400 MG IN NS IV ONE ×3 (10:15)
[2021-03-28] MEDS ORDERED: ACETAMINOPHEN 500 MG TAB (TYLENOL) PO PRN (10:15)
[2021-03-28] MEDS ORDERED: ONDANSETRON 4 MG/2 ML (SDV) Z0FRAN IV PRN (10:15)
[2021-03-28] MEDS ORDERED: diphenhydrAMINE 50 MG/ML INJ (BENADRYL) IV PRN (10:15)
[2021-03-28] MEDS ORDERED: EPINEPHrine INJECTION 1 MG/ML AMP IM PRN (10:15)
[2021-03-28 11:29] VITALS: BP 126/66
== END 2021-03-28 11:32 | disposition home or self-care (01) ==
LOC: INFUSION 09:55
PROVIDERS: ATTEND Nurse Practitioner Family
DX: U07.1 COVID-19 (principal)

== ENCOUNTER → 2021-05-27 | Outpatient (CLI) | payer BC ==
[2021-05-27 16:57] LABS: BASOPHILS % (AUTO) 0 % (0-10); EOSINOPHILS % (AUTO) 0 % (0-10); HEMATOCRIT 36 % (40-54); HEMOGLOBIN 12.3 g/dL (13.3-17.7); LYMPHOCYTES # (AUTO) 1.2 10^3/uL (1.0-4.0); LYMPHOCYTES % (AUTO) 22 % (12-44); MEAN CORPUSCULAR HEMOGLOBIN 32 pg (25-34); MEAN CORPUSCULAR HGB CONC 34 g/dL (32-36); MEAN CORPUSCULAR VOLUME 93 fL (80-99); MEAN PLATELET VOLUME 9.3 fL (9.0-12.2); MONOCYTES # (AUTO) 0.4 10^3/uL (0.0-1.0); MONOCYTES % (AUTO) 7 % (0-12); NEUTROPHILS # (AUTO) 4.1 10^3/uL (1.8-7.8); NEUTROPHILS % (AUTO) 71 % (42-75); PLATELET COUNT 146 10^3/uL (130-400); WHITE BLOOD COUNT 5.8 10^3/uL (4.3-11.0)
[2021-05-27 18:51] LABS: ALBUMIN 4.4 GM/DL (3.2-4.5); BILIRUBIN,TOTAL 0.5 MG/DL (0.1-1.0); CREATININE SERUM 0.98 MG/DL (0.60-1.30); POTASSIUM 3.3 MMOL/L (3.6-5.0); TOTAL PROTEIN 6.8 GM/DL (6.4-8.2)
== END ==
LOC: LAB FS 16:15
PROVIDERS: ATTEND Internal Medicine Hematology & Oncology
DX: C91.12 Chronic lymphocytic leukemia of B-cell type in relapse (principal)
CPT/HCPCS: 36415; 80053; 82728; 82784; 83540; 83550; 83615; 85025

== ENCOUNTER → 2021-05-29 | Outpatient (CLI) | payer BC ==
[~2021-05-29] MED LIST changes: +HOLD METFORMIN - RECEIVED CONTRAST 20 ML VIAL IV SCH; +IOHEXOL 350 MG/ML 100 ML (OMNIPAQUE 350) VIAL IV ONE; +NS 100 ML (IVPB) BAG IV ONE
--- NOTE | 2021-05-29 12:25 | Diagnostic Imaging Report ---
INDICATION: Chronic lymphocytic leukemia. COMPARISON: Exam is compared with CT neck, chest, abdomen, and pelvis performed 05/01/2020. TECHNIQUE: The patient received IV contrast, and CT neck, chest, abdomen, and pelvis is performed with multiplanar reconstructions. The comparison study was performed in similar fashion. FINDINGS: NECK: There are no pathologically enlarged, morphologically distorted, or atypically numerous cervical lymph nodes. No suspicious cervical mass or fluid collection. The nasopharynx, oropharynx, and hypopharynx are unremarkable. There are chronic degenerative changes of the cervical spine without high-grade canal stenosis, fracture, or bony destruction. The visualized orbits, paranasal sinuses, and intracranial contents as well as skull base were unremarkable. There is a right IJ catheter noted malpositioned with its distal component directed laterally at the right axillary vein and extending beyond the cxfid-ci-ecjx. This is unchanged from prior. CHEST: There is no axillary, hilar, or mediastinal lymphadenopathy. No lung mass or suspicious pulmonary nodule. No findings suggestive of edema or pneumonia. No acute soft tissue or osseous chest wall pathology. There has been no change. ABDOMEN AND PELVIS: Small bilateral renal cysts are unchanged. No solid or enhancing renal mass. No hydronephrosis. The adrenals are negative. The liver's density is consistent with mild hepatic steatosis. There is no liver mass. No bile duct dilatation. Gallbladder is unremarkable. The pancreas is normal. The nonfocal spleen is stable and at the upper limits of normal for size. No evidence for splenic infiltration, mass, or rupture. 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 The aorta is nonaneurysmal. No arterial or venous thrombus or obstruction. No findings of end organ ischemia. There is a normal appendix. There is no diverticulitis. There is no small or large bowel obstruction. There is no mesenteric or retroperitoneal adenopathy. No fluid collection, hemorrhage, or ascites. No focal inflammatory process, and there is no acute or suspicious bony abnormality. IMPRESSION: CT NECK: No adenopathy or mass. Malpositioned right IJ directed laterally into the right axillary, unchanged. CT CHEST: No adenopathy, mass, or acute finding. CT ABDOMEN AND PELVIS: Mild hepatic steatosis. Stable renal cysts. Upper limits spleen size, nonfocal and unchanged. No lymphadenopathy. 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 At today's exam, there were no findings to suggest neoplastic recurrence in the neck, chest, abdomen, or pelvis. Dictated by: Dictated on workstation # [id number]
== END ==
LOC: RAD 10:15
PROVIDERS: ATTEND Internal Medicine Hematology & Oncology
DX: K76.0 Fatty (change of) liver, not elsewhere classified (principal); N28.1 Cyst of kidney, acquired; C91.12 Chronic lymphocytic leukemia of B-cell type in relapse
CPT/HCPCS: 70491; 71260; 74176

== ENCOUNTER → 2021-11-21 | Outpatient (CLI) | payer BC ==
[~2021-11-21] MED LIST changes: -HOLD METFORMIN - RECEIVED CONTRAST 20 ML VIAL IV SCH; -IOHEXOL 350 MG/ML 100 ML (OMNIPAQUE 350) VIAL IV ONE; -NS 100 ML (IVPB) BAG IV ONE
[2021-11-21 16:58] LABS: ABSOLUTE RETIC # 84 10e9/uL (24-90); BASOPHILS % (AUTO) 0 % (0-10); EOSINOPHILS % (AUTO) 0 % (0-10); HEMATOCRIT 38 % (40-54); HEMOGLOBIN 13.1 g/dL (13.3-17.7); LYMPHOCYTES # (AUTO) 1.3 10^3/uL (1.0-4.0); LYMPHOCYTES % (AUTO) 23 % (12-44); MEAN CORPUSCULAR HEMOGLOBIN 32 pg (25-34); MEAN CORPUSCULAR HGB CONC 35 g/dL (32-36); MEAN CORPUSCULAR VOLUME 92 fL (80-99); MEAN PLATELET VOLUME 9.1 fL (9.0-12.2); MONOCYTES # (AUTO) 0.5 10^3/uL (0.0-1.0); MONOCYTES % (AUTO) 9 % (0-12); NEUTROPHILS % (AUTO) 68 % (42-75); PLATELET COUNT 142 10^3/uL (130-400); RETICULOCYTE % 2.02 % (0.50-2.40); WHITE BLOOD COUNT 5.8 10^3/uL (4.3-11.0)
[2021-11-21 17:53] LABS: BUN/CREATININE RATIO 13; CALCIUM 9.3 MG/DL (8.5-10.1); CARBON DIOXIDE 24 MMOL/L (21-32); CHLORIDE 110 MMOL/L (98-107); CREATININE SERUM 1.02 MG/DL (0.60-1.30); GFR ESTIMATED 88; GLUCOSE 96 MG/DL (70-105); SODIUM 144 MMOL/L (135-145)
[2021-11-21 17:54] LABS: ALANINE AMINOTRANSFERASE 28 U/L (0-55); ALBUMIN 4.6 GM/DL (3.2-4.5); ALKALINE PHOSPHATASE 119 U/L (40-136); BILIRUBIN,TOTAL 0.3 MG/DL (0.1-1.0); TOTAL PROTEIN 6.6 GM/DL (6.4-8.2)
== END ==
LOC: LAB FS 16:04
PROVIDERS: ATTEND Internal Medicine Hematology & Oncology
DX: C91.12 Chronic lymphocytic leukemia of B-cell type in relapse (principal)
CPT/HCPCS: 36415; 80053; 82607; 82728; 82746; 82784; 83540; 83550; 83615; 84443; 85025; 85045

== ENCOUNTER → 2021-12-17 | Outpatient (CLI) | payer BC ==
[2021-12-17 18:06] LABS: ALBUMIN 4.3 GM/DL (3.2-4.5); BILIRUBIN,TOTAL 0.4 MG/DL (0.1-1.0); CALCIUM 9.1 MG/DL (8.5-10.1); CREATININE SERUM 1.13 MG/DL (0.60-1.30); POTASSIUM 3.8 MMOL/L (3.6-5.0); TOTAL PROTEIN 6.5 GM/DL (6.4-8.2)
[2021-12-17 18:07] LABS: BASOPHILS % (AUTO) 0 % (0-10); EOSINOPHILS % (AUTO) 0 % (0-10); HEMATOCRIT 38 % (40-54); HEMOGLOBIN 13.1 g/dL (13.3-17.7); LYMPHOCYTES # (AUTO) 1.7 10^3/uL (1.0-4.0); LYMPHOCYTES % (AUTO) 27 % (12-44); MEAN CORPUSCULAR HEMOGLOBIN 31 pg (25-34); MEAN CORPUSCULAR HGB CONC 35 g/dL (32-36); MEAN CORPUSCULAR VOLUME 91 fL (80-99); MEAN PLATELET VOLUME 9.4 fL (9.0-12.2); MONOCYTES # (AUTO) 0.5 10^3/uL (0.0-1.0); MONOCYTES % (AUTO) 9 % (0-12); NEUTROPHILS % (AUTO) 64 % (42-75); PLATELET COUNT 148 10^3/uL (130-400); WHITE BLOOD COUNT 6.3 10^3/uL (4.3-11.0)
[2021-12-17 18:22] LABS: BAND NEUTROPHILS 5 %; LYMPHOCYTES % (MANUAL) 25 %; MONOCYTES % (MANUAL) 7 %; NEUTROPHILS % (MANUAL) 61 %
[2021-12-17 18:23] LABS: ATYPICAL LYMPHOCYTES 1 %; MYELOCYTES % 1 %
[2021-12-17 18:24] LABS: RBC MORPH NORMAL
[2021-12-17 18:25] LABS: PLATELET ESTIMATE NORMAL
== END ==
LOC: LAB FS 15:53
PROVIDERS: ATTEND Internal Medicine Hematology & Oncology
DX: C91.12 Chronic lymphocytic leukemia of B-cell type in relapse (principal)
CPT/HCPCS: 36415; 80053; 83615; 85007; 85027

== ENCOUNTER → 2022-01-01 | Outpatient (CLI) | payer BC ==
[~2022-01-01] MED LIST changes: +CATHETER FLUSH 10 ML SYR IV PRN; +HOLD METFORMIN - RECEIVED CONTRAST 20 ML VIAL IV SCH; +IOHEXOL 350 MG/ML 100 ML (OMNIPAQUE 350) VIAL IV ONE; +NS 100 ML (IVPB) BAG IV ONE
--- NOTE | 2022-01-01 10:07 | Diagnostic Imaging Report ---
EXAMINATION: CT neck, chest, abdomen and pelvis with intravenous contrast. TECHNIQUE: Multiple contiguous axial images were obtained through the neck, chest, abdomen and pelvis after the uneventful administration of intravenous contrast. All CT scans use one or more of the following dose optimizing techniques: automated exposure control, MA and/or KvP adjustment based on patient size and exam type or iterative reconstruction. HISTORY: Chronic lymphocytic leukemia COMPARISON: 05/29/2021 FINDINGS: Neck CT: Scattered subcentimeter lymph nodes are seen in the neck. None are pathologically enlarged or abnormally enhancing. The muscles of the neck are normal. Vessels of the neck demonstrate normal course and caliber. Fascial planes are preserved and the deep spaces of the neck are normal. The visualized airway is widely patent. The base of the skull and the temporal bones are normal. Limited views of the brain including the cerebellum and brainstem are normal. The limited view of the [place] is unremarkable. The visualized portions of the orbits are normal. Chest CT: There is no edema or pneumonia. No pleural effusion. No pneumothorax. No suspicious nodules. There is stable 5 mm average diameter right middle lobe nodule. There is a new 1.7 cm right axillary lymph node. There is no mediastinal lymphadenopathy. Right port catheter tip is in the axillary vein, unchanged. Heart size is normal. There are no coronary artery calcifications. No pericardial effusion. Aorta is normal in caliber. Abdomen and Pelvis CT: The liver is normal without focal lesion. There is no biliary ductal dilation. Gallbladder is normal. Pancreas is normal. Spleen is normal. Adrenal glands are normal. There are unchanged small renal lesions that are too small to characterize but likely cysts. There is no hydronephrosis. Urinary bladder is normal. Bowel is normal in caliber without obstruction or inflammation. No free fluid or air. There is a new 1.6 cm lymph node adjacent to the antrum of the stomach. There is no enlargement of 1.9 cm hawa hepatis lymph node. Aorta is normal in caliber without aneurysm. There is a duplicated inferior vena cava. There are no suspicious osseus lesions. IMPRESSION: 1. New enlargement of the axillary lymph node and upper abdominal lymph nodes. 2. Unchanged malpositioning of right-sided Jwpc-Q-Klnstghq with tip in the axillary vein. Dictated by: Dictated on workstation # [id number]
== END ==
LOC: RAD FS 08:35
PROVIDERS: ATTEND Internal Medicine Hematology & Oncology
DX: C91.12 Chronic lymphocytic leukemia of B-cell type in relapse (principal)
CPT/HCPCS: 70491; 71260; 74176; Q9967

== ENCOUNTER → 2022-02-10 | Outpatient (CLI) | payer BC ==
[~2022-02-10] MED LIST changes: -CATHETER FLUSH 10 ML SYR IV PRN; -HOLD METFORMIN - RECEIVED CONTRAST 20 ML VIAL IV SCH; -IOHEXOL 350 MG/ML 100 ML (OMNIPAQUE 350) VIAL IV ONE; -NS 100 ML (IVPB) BAG IV ONE
[2022-02-10 14:43] LABS: BASOPHILS % (AUTO) 0 % (0-10); EOSINOPHILS % (AUTO) 0 % (0-10); HEMATOCRIT 40 % (40-54); HEMOGLOBIN 14.2 g/dL (13.3-17.7); LYMPHOCYTES % (AUTO) 21 % (12-44); MEAN CORPUSCULAR HEMOGLOBIN 32 pg (25-34); MEAN CORPUSCULAR HGB CONC 36 g/dL (32-36); MEAN CORPUSCULAR VOLUME 90 fL (80-99); MONOCYTES % (AUTO) 8 % (0-12); NEUTROPHILS # (AUTO) 4.8 X 10^3 (1.8-7.8); NEUTROPHILS % (AUTO) 70 % (42-75); PLATELET COUNT 146 10^3/uL (130-400); WHITE BLOOD COUNT 6.8 10^3/uL (4.3-11.0)
[2022-02-10 14:44] LABS: LYMPHOCYTES # (AUTO) 1.5 X 10^3 (1.0-4.0); MONOCYTES # (AUTO) 0.5 X 10^3 (0.0-1.0); POTASSIUM 3.7 MMOL/L (3.6-5.0)
[2022-02-10 14:45] LABS: ALBUMIN 4.4 GM/DL (3.2-4.5); BILIRUBIN,TOTAL 0.6 MG/DL (0.1-1.0); CREATININE SERUM 1.11 MG/DL (0.60-1.30); TOTAL PROTEIN 6.7 GM/DL (6.4-8.2)
== END ==
LOC: LAB FS 13:55
PROVIDERS: ATTEND Internal Medicine Hematology & Oncology
DX: C91.12 Chronic lymphocytic leukemia of B-cell type in relapse (principal)
CPT/HCPCS: 36415; 80053; 85025

== ENCOUNTER → 2022-02-10 | Outpatient (CLI) | payer BC ==
--- NOTE | 2022-02-10 10:31 | Diagnostic Imaging Report ---
Indication: Lymphoid leukemia. Study performed for restaging. Serum blood glucose level at the time injection is 110 mg/dL. Patient was administered 13.3 mCi F-18 FDG intravenously in the right antecubital location and PET imaging was performed from the top of skull to mid thighs. Noncontrast CT was also performed for attenuation correction and anatomic correlation. No prior PET/CT studies are available for comparison. Comparison is made with recent conventional CT performed 01/01/2022. There is symmetric activity throughout the brain. Soft tissues of the neck are unremarkable. There is an enlarged lymph node in the right axilla measuring 2.5 x 1.7 cm. This demonstrates low level activity with SUV max of 2.6. The left axilla is unremarkable. No mediastinal or hilar hypermetabolism is seen. No pulmonary parenchymal hypermetabolism is seen. The right chest wall port is malpositioned with the tip in the region of the right axillary vein. The enlarged lymph node in the upper abdomen described on recent CT does not show FDG avidity. There is normal physiologic activity throughout the gastrointestinal and genitourinary tracts. No suspicious hypermetabolism is detected. There are punctate nonobstructing calculi in the right kidney. IMPRESSION: 1. Right axillary lymphadenopathy. The enlarged lymph node does show only low level FDG avidity. No other suspicious areas of hypermetabolism are identified. 2. Nonobstructing right-sided nephrolithiasis. Dictated by: Dictated on workstation # [id number]
== END ==
LOC: RAD 08:15
PROVIDERS: ATTEND Internal Medicine Hematology & Oncology
DX: C91.90 Lymphoid leukemia, unspecified not having achieved remission (principal); N20.0 Calculus of kidney
CPT/HCPCS: 78815; A9552

== ENCOUNTER → 2022-02-25 | Outpatient (CLI) | payer BC | LOC: LAB FS 15:52 | PROVIDERS: ATTEND Internal Medicine Hematology & Oncology | DX: C91.10 Chronic lymphocytic leukemia of B-cell type not having achieved remission (principal) | CPT/HCPCS: 36415; 86850; 86900; 86901 ==

== ENCOUNTER → 2022-03-04 | Outpatient (CLI) | payer BC ==
[2022-03-04 12:43] LABS: WHITE BLOOD COUNT 6.1 10^3/uL (4.3-11.0)
[2022-03-04 12:44] LABS: BASOPHILS % (AUTO) 0 % (0-10); EOSINOPHILS % (AUTO) 0 % (0-10); HEMATOCRIT 38 % (40-54); HEMOGLOBIN 13.3 g/dL (13.3-17.7); LYMPHOCYTES % (AUTO) 24 % (12-44); MEAN CORPUSCULAR HEMOGLOBIN 32 pg (25-34); MEAN CORPUSCULAR HGB CONC 35 g/dL (32-36); MEAN CORPUSCULAR VOLUME 92 fL (80-99); MONOCYTES % (AUTO) 8 % (0-12); NEUTROPHILS % (AUTO) 67 % (42-75); PLATELET COUNT 136 10^3/uL (130-400)
[2022-03-04 12:45] LABS: LYMPHOCYTES # (AUTO) 1.4 X 10^3 (1.0-4.0); MONOCYTES # (AUTO) 0.5 X 10^3 (0.0-1.0); NEUTROPHILS # (AUTO) 4.1 X 10^3 (1.8-7.8)
[2022-03-04 13:00] LABS: POTASSIUM 4.2 MMOL/L (3.6-5.0)
[2022-03-04 13:01] LABS: ALBUMIN 4.1 GM/DL (3.2-4.5); BAND NEUTROPHILS 1 %; BILIRUBIN,TOTAL 0.3 MG/DL (0.1-1.0); CALCIUM 9.2 MG/DL (8.5-10.1); CREATININE SERUM 1.03 MG/DL (0.60-1.30); LYMPHOCYTES % (MANUAL) 25 %; MONOCYTES % (MANUAL) 8 %; NEUTROPHILS % (MANUAL) 66 %; TOTAL PROTEIN 6.5 GM/DL (6.4-8.2)
[2022-03-04 13:02] LABS: BASOPHILS % (MANUAL) 0 %; EOSINOPHILS % (MANUAL) 0 %
== END ==
LOC: LAB FS 12:03
PROVIDERS: ATTEND Internal Medicine Hematology & Oncology
DX: C91.12 Chronic lymphocytic leukemia of B-cell type in relapse (principal)
CPT/HCPCS: 36415; 80053; 83615; 85007; 85027

== ENCOUNTER → 2022-04-02 | Outpatient (CLI) | payer BC ==
[2022-04-02 16:38] LABS: HEMATOCRIT 40 % (40-54); HEMOGLOBIN 13.5 g/dL (13.3-17.7); MEAN CORPUSCULAR HEMOGLOBIN 32 pg (25-34); WHITE BLOOD COUNT 7.2 10^3/uL (4.3-11.0)
[2022-04-02 16:39] LABS: BASOPHILS % (AUTO) 0 % (0-10); EOSINOPHILS % (AUTO) 1 % (0-10); LYMPHOCYTES % (AUTO) 32 % (12-44); MEAN CORPUSCULAR HGB CONC 34 g/dL (32-36); MEAN CORPUSCULAR VOLUME 94 fL (80-99); MEAN PLATELET VOLUME 9.8 fL (9.0-12.2); MONOCYTES % (AUTO) 8 % (0-12); NEUTROPHILS % (AUTO) 58 % (42-75); PLATELET COUNT 122 10^3/uL (130-400)
[2022-04-02 16:40] LABS: BAND NEUTROPHILS 1 %; BASOPHILS % (MANUAL) 2 %; EOSINOPHILS # (AUTO) 0.1 10^3/uL (0.0-0.3); EOSINOPHILS % (MANUAL) 0 %; LYMPHOCYTES # (AUTO) 2.3 X 10^3 (1.0-4.0); LYMPHOCYTES % (MANUAL) 28 %; MONOCYTES # (AUTO) 0.6 X 10^3 (0.0-1.0); MONOCYTES % (MANUAL) 16 %; NEUTROPHILS # (AUTO) 4.2 X 10^3 (1.8-7.8); NEUTROPHILS % (MANUAL) 53 %; NUCLEATED RED BLOOD CELLS 1
[2022-04-02 16:43] LABS: POTASSIUM 4.3 MMOL/L (3.6-5.0)
[2022-04-02 16:44] LABS: ALBUMIN 4.3 GM/DL (3.2-4.5); BILIRUBIN,TOTAL 0.3 MG/DL (0.1-1.0); CALCIUM 9.2 MG/DL (8.5-10.1); CREATININE SERUM 1.01 MG/DL (0.60-1.30); TOTAL PROTEIN 6.5 GM/DL (6.4-8.2)
== END ==
LOC: LAB FS 15:43
PROVIDERS: ATTEND Internal Medicine Hematology & Oncology
DX: C91.12 Chronic lymphocytic leukemia of B-cell type in relapse (principal)
CPT/HCPCS: 36415; 80053; 83615; 85007; 85027

== ENCOUNTER → 2022-05-19 | Outpatient (CLI) | payer BC ==
[2022-05-19 17:31] LABS: BILIRUBIN,TOTAL 0.4 MG/DL (0.1-1.0); CREATININE SERUM 1.06 MG/DL (0.60-1.30); POTASSIUM 3.9 MMOL/L (3.6-5.0)
[2022-05-19 17:32] LABS: ALBUMIN 4.3 GM/DL (3.2-4.5); BASOPHILS % (AUTO) 1 % (0-10); EOSINOPHILS # (AUTO) 0.1 10^3/uL (0.0-0.3); EOSINOPHILS % (AUTO) 1 % (0-10); HEMATOCRIT 41 % (40-54); HEMOGLOBIN 13.4 g/dL (13.3-17.7); LYMPHOCYTES # (AUTO) 2.2 10^3/uL (1.0-4.0); LYMPHOCYTES % (AUTO) 25 % (12-44); MEAN CORPUSCULAR HEMOGLOBIN 32 pg (25-34); MEAN CORPUSCULAR HGB CONC 33 g/dL (32-36); MEAN CORPUSCULAR VOLUME 96 fL (80-99); MEAN PLATELET VOLUME 10.1 fL (9.0-12.2); MONOCYTES # (AUTO) 0.6 10^3/uL (0.0-1.0); MONOCYTES % (AUTO) 7 % (0-12); NEUTROPHILS # (AUTO) 5.9 10^3/uL (1.8-7.8); NEUTROPHILS % (AUTO) 66 % (42-75); PLATELET COUNT 139 10^3/uL (130-400); TOTAL PROTEIN 6.7 GM/DL (6.4-8.2); WHITE BLOOD COUNT 8.8 10^3/uL (4.3-11.0)
[2022-05-19 17:46] LABS: BAND NEUTROPHILS 1 %; BASOPHILS % (MANUAL) 1 %; EOSINOPHILS % (MANUAL) 1 %; LYMPHOCYTES % (MANUAL) 23 %; MONOCYTES % (MANUAL) 7 %; NEUTROPHILS % (MANUAL) 67 %; PLATELET ESTIMATE NORMAL; RBC MORPH NORMAL
== END ==
LOC: LAB FS 15:42
PROVIDERS: ATTEND Internal Medicine Hematology & Oncology
DX: C91.12 Chronic lymphocytic leukemia of B-cell type in relapse (principal)
CPT/HCPCS: 36415; 80053; 83615; 85007; 85027

== ENCOUNTER → 2022-06-10 | Outpatient (CLI) | payer BC ==
[~2022-06-10] MED LIST changes: +HOLD METFORMIN - RECEIVED CONTRAST 20 ML VIAL IV SCH; +IOHEXOL 350 MG/ML 100 ML (OMNIPAQUE 350) VIAL IV ONE; +NS 100 ML (IVPB) BAG IV ONE
[2022-06-10] MEDS: CATHETER FLUSH 10 ML SYR IV PRN ×3 (08:14→08:20)
[2022-06-10 08:28] LABS: CREATININE SERUM 1.17 MG/DL (0.60-1.30)
[2022-06-10 08:29] LABS: ALBUMIN 4.1 GM/DL (3.2-4.5); BILIRUBIN,TOTAL 0.5 MG/DL (0.1-1.0); CALCIUM 8.9 MG/DL (8.5-10.1); TOTAL PROTEIN 6.6 GM/DL (6.4-8.2)
[2022-06-10 08:39] LABS: BASOPHILS % (AUTO) 0 % (0-10); EOSINOPHILS % (AUTO) 1 % (0-10); HEMATOCRIT 41 % (40-54); HEMOGLOBIN 13.9 g/dL (13.3-17.7); LYMPHOCYTES # (AUTO) 1.3 10^3/uL (1.0-4.0); LYMPHOCYTES % (AUTO) 20 % (12-44); MEAN CORPUSCULAR HEMOGLOBIN 32 pg (25-34); MEAN CORPUSCULAR HGB CONC 34 g/dL (32-36); MEAN CORPUSCULAR VOLUME 94 fL (80-99); MEAN PLATELET VOLUME 9.9 fL (9.0-12.2); MONOCYTES # (AUTO) 0.4 10^3/uL (0.0-1.0); MONOCYTES % (AUTO) 6 % (0-12); NEUTROPHILS # (AUTO) 4.8 10^3/uL (1.8-7.8); NEUTROPHILS % (AUTO) 72 % (42-75); PLATELET COUNT 128 10^3/uL (130-400); WHITE BLOOD COUNT 6.7 10^3/uL (4.3-11.0)
--- NOTE | 2022-06-10 08:51 | Diagnostic Imaging Report ---
EXAMINATION: CT chest, abdomen and pelvis with intravenous contrast. TECHNIQUE: Multiple contiguous axial images were obtained through the chest, abdomen and pelvis after the uneventful administration of intravenous contrast. All CT scans use one or more of the following dose optimizing techniques: automated exposure control, MA and/or KvP adjustment based on patient size and exam type or iterative reconstruction. HISTORY: Leukemia, back pain. COMPARISON: 01/01/2022 FINDINGS: There is no edema or pneumonia. No pleural effusion. No pneumothorax. No suspicious nodules. There is a stable 5 mm right middle lobe nodule. There is no axillary or supraclavicular lymphadenopathy. The previously enlarged right axillary lymph nodes are now normal in size. There is no mediastinal lymphadenopathy. Heart size is normal. There are no coronary artery calcifications. No pericardial effusion. Aorta is normal in caliber. The liver is normal without focal lesion. There is no biliary ductal dilation. Gallbladder is normal. Pancreas is normal. Spleen is normal. Adrenal glands are normal. Simple cysts are present in the kidneys. No suspicious renal lesion. There is no hydronephrosis. Urinary bladder is normal. Bowel is normal in caliber without obstruction or inflammation. 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 The right internal iliac vein arises from the left common iliac vein. No free fluid or air. Previously seen enlarged hawa hepatis lymph node measures 1.6 cm, previously 1.9 cm. Aorta is normal in caliber without aneurysm. There are no suspicious osseous lesions. IMPRESSION: 1. Resolution of right axillary lymphadenopathy. 2. Mild decrease in size of hawa hepatis lymphadenopathy. Dictated by: Dictated on workstation # [id number]
[2022-06-10 12:38] LABS: ATYPICAL LYMPHOCYTES 2 %; BAND NEUTROPHILS 3 %; LYMPHOCYTES % (MANUAL) 20 %; MONOCYTES % (MANUAL) 9 %; NEUTROPHILS % (MANUAL) 66 %
[2022-06-10 12:39] LABS: PLATELET ESTIMATE DECREASED; RBC MORPH NORMAL
== END ==
LOC: RAD FS 07:33
PROVIDERS: ATTEND Internal Medicine Hematology & Oncology
DX: C95.90 Leukemia, unspecified not having achieved remission (principal)
CPT/HCPCS: 36415; 71260; 74177; 80053; 83615; 85007; 85027; Q9967

== ENCOUNTER → 2022-09-04 | Outpatient (CLI) | payer BC ==
[~2022-09-04] MED LIST changes: -HOLD METFORMIN - RECEIVED CONTRAST 20 ML VIAL IV SCH; -IOHEXOL 350 MG/ML 100 ML (OMNIPAQUE 350) VIAL IV ONE; -NS 100 ML (IVPB) BAG IV ONE
[2022-09-04 16:32] LABS: BASOPHILS % (AUTO) 1 % (0-10); EOSINOPHILS # (AUTO) 0.1 10^3/uL (0.0-0.3); EOSINOPHILS % (AUTO) 1 % (0-10); HEMATOCRIT 39 % (40-54); HEMOGLOBIN 13.3 g/dL (13.3-17.7); LYMPHOCYTES # (AUTO) 1.9 10^3/uL (1.0-4.0); LYMPHOCYTES % (AUTO) 23 % (12-44); MEAN CORPUSCULAR HEMOGLOBIN 31 pg (25-34); MEAN CORPUSCULAR HGB CONC 34 g/dL (32-36); MEAN CORPUSCULAR VOLUME 91 fL (80-99); MEAN PLATELET VOLUME 10.3 fL (9.0-12.2); MONOCYTES # (AUTO) 0.6 10^3/uL (0.0-1.0); MONOCYTES % (AUTO) 7 % (0-12); NEUTROPHILS # (AUTO) 5.4 10^3/uL (1.8-7.8); NEUTROPHILS % (AUTO) 67 % (42-75); PLATELET COUNT 136 10^3/uL (130-400); WHITE BLOOD COUNT 8.1 10^3/uL (4.3-11.0)
[2022-09-04 16:35] LABS: BILIRUBIN,TOTAL 0.4 MG/DL (0.1-1.0); CALCIUM 9.1 MG/DL (8.5-10.1); CREATININE SERUM 0.98 MG/DL (0.60-1.30); POTASSIUM 4.1 MMOL/L (3.6-5.0)
[2022-09-04 16:36] LABS: ALBUMIN 4.2 GM/DL (3.2-4.5); TOTAL PROTEIN 6.5 GM/DL (6.4-8.2)
[2022-09-04 16:47] LABS: EOSINOPHILS % (MANUAL) 1 %; LYMPHOCYTES % (MANUAL) 26 %; MONOCYTES % (MANUAL) 2 %; NEUTROPHILS % (MANUAL) 71 %
== END ==
LOC: LAB FS 15:49
PROVIDERS: ATTEND Internal Medicine Hematology & Oncology
DX: C91.12 Chronic lymphocytic leukemia of B-cell type in relapse (principal); D64.9 Anemia, unspecified; D69.6 Thrombocytopenia, unspecified
CPT/HCPCS: 36415; 80053; 83615; 85007; 85027

== ENCOUNTER → 2022-12-03 | Outpatient (CLI) | payer BC ==
[2022-12-03 14:41] LABS: BASOPHILS % (AUTO) 0 % (0-10); EOSINOPHILS # (AUTO) 0.1 10^3/uL (0.0-0.3); EOSINOPHILS % (AUTO) 1 % (0-10); HEMATOCRIT 38 % (40-54); HEMOGLOBIN 12.7 g/dL (13.3-17.7); LYMPHOCYTES # (AUTO) 1.8 10^3/uL (1.0-4.0); LYMPHOCYTES % (AUTO) 22 % (12-44); MEAN CORPUSCULAR HEMOGLOBIN 31 pg (25-34); MEAN CORPUSCULAR HGB CONC 33 g/dL (32-36); MEAN CORPUSCULAR VOLUME 93 fL (80-99); MEAN PLATELET VOLUME 9.8 fL (9.0-12.2); MONOCYTES # (AUTO) 0.5 10^3/uL (0.0-1.0); MONOCYTES % (AUTO) 7 % (0-12); NEUTROPHILS # (AUTO) 5.6 10^3/uL (1.8-7.8); NEUTROPHILS % (AUTO) 70 % (42-75); PLATELET COUNT 145 10^3/uL (130-400)
[2022-12-03 14:58] LABS: BILIRUBIN,TOTAL 0.3 MG/DL (0.1-1.0); CALCIUM 9.1 MG/DL (8.5-10.1); CREATININE SERUM 1.19 MG/DL (0.60-1.30); TOTAL PROTEIN 6.1 GM/DL (6.4-8.2)
[2022-12-03 14:59] LABS: ALBUMIN 4.2 GM/DL (3.2-4.5)
[2022-12-03 15:07] LABS: LYMPHOCYTES % (MANUAL) 22 %; MONOCYTES % (MANUAL) 6 %; NEUTROPHILS % (MANUAL) 72 %
[2022-12-03 15:08] LABS: PLATELET ESTIMATE SL DECREASED; RBC MORPH NORMAL
== END ==
LOC: LAB FS 14:15
PROVIDERS: ATTEND Internal Medicine Hematology & Oncology
DX: Z01.89 Encounter for other specified special examinations (principal)
CPT/HCPCS: 36415; 80053; 83615; 85007; 85027

== ENCOUNTER → 2022-12-09 | Outpatient (CLI) | payer BC ==
[~2022-12-09] MED LIST changes: +CATHETER FLUSH 10 ML SYR IV PRN; +IOHEXOL 350 MG/ML 100 ML (OMNIPAQUE 350) VIAL IV ONE; +NS 100 ML (IVPB) BAG IV ONE
--- NOTE | 2022-12-09 11:01 | Diagnostic Imaging Report ---
PROCEDURE: CT chest, abdomen, and pelvis with contrast. TECHNIQUE: Multiple contiguous axial images were obtained through the chest, abdomen, and pelvis after the administration of intravenous contrast. Auto Exposure Controls were utilized during the CT exam to meet ALARA standards for radiation dose reduction. INDICATION: Chronic lymphocytic leukemia. Compared with CT chest, abdomen and pelvis 06/10/2022. CHEST: Residual lymph nodes in the bilateral axillary are almost entirely comprised of fat. No pathological appearing axillary nodes. There is no hilar or mediastinal lymphadenopathy. There is benign prominence of the mediastinal fat. The lungs themselves clear. No pulmonary nodule or suspicious lung mass. No chest effusion. There is some slight bibasilar atelectasis. Abdomen pelvis: The nonfocal spleen is within stable and normal size. There is mild hepatic steatosis chronic. No liver mass. There are gallstones without bile duct dilatation. The adrenals are negative. The pancreas is negative. The hawa hepatis lymph node today 2.0 x 1.9 cm measured along the same axes and utilizing the same technique. Its prior dimensions 2.9 x 1.9 cm. No new mesenteric mass. 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 Small nodes ventral to the bilateral caval moieties measured 3 to 4 mm maximal. Distal external iliac chain lymph nodes in the pelvis measured 11 mm bilaterally previously 13 mm. No inguinal adenopathy. There has been no adverse development. There is no bowel, biliary or urinary tract obstruction. No suspicious bony lesion. A few renal cyst chronic. No hydronephrosis. No suspicious renal infiltration. The adrenals negative. Pancreas negative. No ileus or bowel obstruction. IMPRESSION: Chest: No thoracic lymphadenopathy. Fatty nodes in the axilla. Abdomen pelvis: Further decrease in hawa hepatis adenopathy. Tiny distal external iliac chain and pelvic lymph nodes as well as minute subcentimeter juxta caval retroperitoneal nodes stable. No adverse development. Fatty liver and gallstones with no bowel, biliary or urinary tract obstruction, ascites or organomegaly. Dictated by: Dictated on workstation # [id number]
== END ==
LOC: RAD FS 09:11
PROVIDERS: ATTEND Internal Medicine Hematology & Oncology
DX: K76.0 Fatty (change of) liver, not elsewhere classified (principal); K80.20 Calculus of gallbladder without cholecystitis without obstruction; C91.12 Chronic lymphocytic leukemia of B-cell type in relapse
CPT/HCPCS: 71260; 74177; Q9967

== ENCOUNTER → 2023-03-03 | Outpatient (CLI) | payer BC ==
[~2023-03-03] MED LIST changes: -CATHETER FLUSH 10 ML SYR IV PRN; -IOHEXOL 350 MG/ML 100 ML (OMNIPAQUE 350) VIAL IV ONE; -NS 100 ML (IVPB) BAG IV ONE
[2023-03-03 14:06] LABS: BASOPHILS % (AUTO) 1 % (0-10); EOSINOPHILS # (AUTO) 0.1 10^3/uL (0.0-0.3); EOSINOPHILS % (AUTO) 1 % (0-10); HEMATOCRIT 41 % (40-54); HEMOGLOBIN 13.7 g/dL (13.3-17.7); LYMPHOCYTES # (AUTO) 1.9 10^3/uL (1.0-4.0); LYMPHOCYTES % (AUTO) 21 % (12-44); MEAN CORPUSCULAR HEMOGLOBIN 31 pg (25-34); MEAN CORPUSCULAR HGB CONC 34 g/dL (32-36); MEAN CORPUSCULAR VOLUME 93 fL (80-99); MEAN PLATELET VOLUME 9.7 fL (9.0-12.2); MONOCYTES # (AUTO) 0.6 10^3/uL (0.0-1.0); MONOCYTES % (AUTO) 7 % (0-12); NEUTROPHILS # (AUTO) 6.1 10^3/uL (1.8-7.8); NEUTROPHILS % (AUTO) 70 % (42-75); PLATELET COUNT 156 10^3/uL (130-400); WHITE BLOOD COUNT 8.7 10^3/uL (4.3-11.0)
[2023-03-03 14:36] LABS: ATYPICAL LYMPHOCYTES 7 %; BAND NEUTROPHILS 1 %; LYMPHOCYTES % (MANUAL) 20 %; MONOCYTES % (MANUAL) 6 %; NEUTROPHILS % (MANUAL) 66 %; PLATELET ESTIMATE ADEQUATE; RBC MORPH NORMAL
[2023-03-03 14:37] LABS: ALBUMIN 4.4 GM/DL (3.2-4.5); BILIRUBIN,TOTAL 0.3 MG/DL (0.1-1.0); CALCIUM 9.2 MG/DL (8.5-10.1); CREATININE SERUM 0.94 MG/DL (0.60-1.30); POTASSIUM 4.2 MMOL/L (3.6-5.0); TOTAL PROTEIN 6.9 GM/DL (6.4-8.2)
== END ==
LOC: LAB FS 13:42
PROVIDERS: ATTEND Internal Medicine Hematology & Oncology
DX: C91.12 Chronic lymphocytic leukemia of B-cell type in relapse (principal)
CPT/HCPCS: 36415; 80053; 82784; 83615; 85007; 85027